=== PATIENT | female | born 1945 | race Caucasian/White ===

== ENCOUNTER 2016-07-17 19:16 | Inpatient (IN) | payer MEDICARE ==
[2016-07-17] MEDS ORDERED: methylPREDNISolone 125 MG* 2 ML VIAL IV ONE (19:31)
[2016-07-17] MEDS ORDERED: Albuterol/Ipratropium NEB.SOL* Albuterol 2.5 MG/Ipratropium 0.5 MG 3 ML INH ONE ×2 (19:31→20:59)
[2016-07-17] MEDS ORDERED: Furosemide IV* 10 MG/ML 10 ML VIAL (100 MG) IV ONE (19:33)
[2016-07-17 20:00] LABS: Hematocrit 46 % (35-47); Hemoglobin 14.9 g/dl (12.0-16.0); Mean Corpuscular HGB Conc 32 g/dl (31-36); Mean Corpuscular Hemoglobin 29 pg (27-31); Mean Corpuscular Volume 90 fL (80-97); Mean Platelet Volume 9 um3 (7.4-10.4); Red Blood Count 5.13 10^6/ul (4.0-5.4); Red Cell Distribution Width 17 % (10.5-15); White Blood Count 8.6 10^3/ul (3.5-10.8)
[2016-07-17] MEDS ORDERED: Ondansetron INJ* 2 MG/ML VIAL IV ONE (20:17)
[2016-07-17 20:18] LABS: Troponin I 0.03 ng/mL (<0.04)
[2016-07-17] MEDS ORDERED: Ondansetron INJ* 2 MG/ML VIAL ONE (20:18)
--- NOTE | 2016-07-17 20:23 | RAD ---
INDICATION: Shortness of breath. COMPARISON: May 07, 2016 TECHNIQUE: Dual energy PA and routine lateral views of the chest were obtained. REPORT: Elevated lung volumes and mild prominence of interstitial markings. No pulmonary consolidation, focal pulmonary lesion, pleural effusion, pneumothorax. In addition to the previous RIGHT atrial and RIGHT ventricular level pacemaker leads there is now an additional lead extending along the course of the coronary sinus. Grossly unchanged cardiomegaly. Unremarkable central pulmonary vasculature and mediastinal contours. Previous RIGHT subclavian catheter has been removed. IMPRESSION: Cardiomegaly. No evidence for pulmonary edema. Stigmata of probable chronic obstructive pulmonary disease.
[2016-07-17 20:27] LABS: BUN/Creatinine Ratio 16.9 (8-20); Calcium 9.3 mg/dL (8.6-10.3); EGFR African American 58.2 (>60); EGFR Non-African American 45.3 (>60); Globulin 3.7 g/dL (2-4); Potassium 4.6 mmol/L (3.5-5.0); Total Protein 7.7 g/dL (6.4-8.9)
--- NOTE | 2016-07-17 20:34 | ED ---
Andrew Driver Erika, scribed for Ashkan Peña MD on 07/17/16 at 1942 . Respiratory - HPI Summary HPI Summary: Patient is a 71-year-old female presenting to the ED with a CC of SOB. Daughter , who is a nurse at [employer] [facility] [employer], provides the history. She reports that pt had a cough and cold-like symptoms starting 07/15/2016. Last night, patient woke up twice during the night with difficulty breathing. Today at noon, patient developed sudden-onset SOB that has been gradually worsening since. She has been resting all day. Pt has used her albuterol inhaler. Pt is not on home O2. Daughter reports that symptoms have made patient anxious as well. Hx CHF - has recently had 2 ablations in [place], most recently on 06/02/2016. This was patient's last hospitalization. Pt's torsemide was recently decreased, and lisinopril was added. Hx COPD - pt is a former smoker. Hx OH with cardiac stents, Hx TIA. - History of Current Complaint Stated Complaint: DIFF BREATHING Time Seen by Provider: 07/17/16 19:26 Hx Obtained From: Family/Podiatrist Assistant - Daughter Hx From Patient Unobtainable Due To: Other - SOB Onset/Duration: Sudden Onset, Lasting Hours, Worse Since - Gradually worsening Timing: Constant Initial Severity: Moderate Current Severity: Moderate Character: Dyspnea at Rest Alleviating Factor(s): Nothing Associated Signs and Symptoms: SOB, URI - Allergy/Home Medications Allergies/Adverse Reactions: Allergies Allergy/AdvReac Type Severity Reaction Status Date / Time Niacin Allergy Severe Airway Verified 04/25/16 10:53 Obstruction Penicillins Allergy Severe Anaphylatic Verified 04/25/16 10:53 Shock Amiodarone AdvReac Severe See Comment Verified 05/06/16 09:14 Bupropion AdvReac Shakes Verified 05/06/16 09:15 Codeine AdvReac See Comment Verified 05/06/16 09:15 Home Medications: Home Medications Metoprolol Succinate XL TAB* [Toprol XL TAB*] 100 mg PO DAILY 07/17/16 [History Confirmed 07/17/16] Torsemide TAB* [Demadex 20 MG*] 50 mg PO EVERY OTHER DAY 07/17/16 [History Confirmed 07/17/16] Torsemide TAB* [Demadex*] 100 mg PO EVERY OTHER DAY 07/17/16 [History Confirmed 07/17/16] PMH/Surg Hx/FS Hx/Imm Hx Endocrine/Hematology History: Reports: Hx Thyroid Disease Denies: Hx Diabetes, Hx Anemia Cardiovascular History: Reports: Hx Auto Implanted Cardiovert Defib - d/t V fib , Hx Congestive Heart Failure, Hx Coronary Artery Disease, Hx Hypercholesterolemia, Hx Hypertension, Hx Pacemaker/ICD, Other Cardiovascular Problems/Disorders - Ventricular tachycardia, ventricular fibrillation, cardiomyopathy Denies: Hx Peripheral Vascular Disease Respiratory History: Reports: Hx Chronic Obstructive Pulmonary Disease (COPD) Denies: Hx Asthma GI History: Reports: Hx Gastroesophageal Reflux Disease Denies: Hx Jaundice, Hx Ulcer Musculoskeletal History: Reports: Hx Arthritis - OA, Hx Back Problems - Spinal stenosis, Hx Fibromyalgia, Other Musculoskeletal History - knee surgery Denies: Hx Osteoporosis Sensory History: Reports: Hx Contacts or Glasses Opthamlomology History: Reports: Hx Contacts or Glasses Neurological History: Reports: Hx Headaches Denies: Hx Seizures, Hx Transient Ischemic Attacks (TIA) - Cancer History Hx Chemotherapy: No Hx Radiation Therapy: No - Surgical History Surgery Procedure, Year, and Place: Tubal ligation 1970. Hysterectomy 1985. Cholecystectomy 1986. Right arthroscopic decompression of the shoulder 2001. Sphincterostomy 2005. Dual chamber ICD 1999, Generator changes in 08/2002, 2006, 08/2010 - Immunization History Date of Tetanus Vaccine: Unk Date of Influenza Vaccine: Fall 2014 Infectious Disease History: Denies: Hx Clostridium Difficile, Hx Hepatitis, Hx Human Immunodeficiency Virus (HIV), Hx of Known/Suspected MRSA, Hx Shingles, Hx Tuberculosis, Hx Known/ Suspected VRE, Hx Known/Suspected VRSA, History Other Infectious Disease - Family History Known Family History: Positive: Cardiac Disease Family History: No FHx of Breast CA - Social History Alcohol Use: None Substance Use Type: Reports: None Smoking Status (MU): Current Some Day Smoker Type: Cigarettes Amount Used/How Often: 1/2 pack q day Have You Smoked in the Last Year: Yes Review of Systems Positive: Shortness Of Breath, Cough Positive: Anxious All Other Systems Reviewed And Are Negative: Yes Physical Exam Triage Information Reviewed: Yes Vital Signs On Initial Exam: Initial Vital Signs Temp 98.7 F 07/17/16 19:20 Pulse 96 07/17/16 19:20 Resp 32 07/17/16 19:20 BP 111/88 07/17/16 19:20 Pulse Ox 94 07/17/16 19:20 Vital Signs Reviewed: Yes Appearance: Positive: Well-Appearing, No Pain Distress Skin: Positive: Warm Eyes: Positive: EPI ENT: Positive: Hearing grossly normal Neck: Positive: Supple Respiratory/Lung Sounds: Positive: Decreased Breath Sounds, Wheezes - diffuse bilat expiratory Cardiovascular: Positive: Tachycardia Abdomen Description: Positive: Nontender, Soft Bowel Sounds: Positive: Present Musculoskeletal: Positive: Strength/ROM Intact Neurological: Positive: Sensory/Motor Intact Psychiatric: Positive: Affect/Mood Appropriate Diagnostics - Vital Signs Vital Signs Temp Pulse Resp BP Pulse Ox 07/17/16 20:00 85 20 83 07/17/16 19:33 82 18 100 07/17/16 19:31 80 21 84 07/17/16 19:20 98.7 F 96 32 111/88 94 - Laboratory Lab Results: Lab Results 07/17/16 07/17/16 07/17/16 Range/Units 19:50 19:50 19:50 WBC 8.6 (3.5-10.8) 10^3/ul RBC 5.13 (4.0-5.4) 10^6/ul Hgb 14.9 (12.0-16.0) g/dl Hct 46 (35-47) % MCV 90 (80-97) fL MCH 29 (27-31) pg MCHC 32 (31-36) g/dl RDW 17 H (10.5-15) % Plt Count 245 (150-450) 10^3/ul MPV 9 (7.4-10.4) um3 Neut % (Auto) 81.6 (38-83) % Lymph % (Auto) 9.3 L (25-47) % [place] % (Auto) 7.0 (1-9) % Eos % (Auto) 1.1 (0-6) % Baso % (Auto) 1.0 (0-2) % Absolute Neuts (auto) 7.0 (1.5-7.7) 10^3/ul Absolute Lymphs (auto) 0.8 L (1.0-4.8) 10^3/ul Absolute Monos (auto) 0.6 (0-0.8) 10^3/ul Absolute Eos (auto) 0.1 (0-0.6) 10^3/ul Absolute Basos (auto) 0.1 (0-0.2) 10^3/ul Absolute Nucleated RBC 0.01 10^3/ul Nucleated RBC % 0.1 D-Dimer, Quantitative < 200 (Less Than 230) ng/mL Sodium 135 (133-145) mmol/L Potassium 4.6 (3.5-5.0) mmol/L Chloride 96 L (101-111) mmol/L Carbon Dioxide 26 (22-32) mmol/L Anion Gap 13 H (2-11) mmol/L BUN 20 (6-24) mg/dL Creatinine 1.18 H (0.51-0.95) mg/dL Est GFR ( Amer) 58.2 (>60) Est GFR (Non-Af Amer) 45.3 (>60) BUN/Creatinine Ratio 16.9 (8-20) Glucose 136 H (70-100) mg/dL Calcium 9.3 (8.6-10.3) mg/dL Total Bilirubin Pending AST 33 (13-39) U/L ALT 17 (7-52) U/L Alkaline Phosphatase 140 H (34-104) U/L Troponin I 0.03 (<0.04) ng/mL B-Natriuretic Peptide ( - 100) pg/mL Total Protein 7.7 (6.4-8.9) g/dL Albumin 4.0 (3.2-5.2) g/dL Globulin 3.7 (2-4) g/dL Albumin/Globulin Ratio 1.1 (1-3) 07/17/16 Range/Units 19:50 WBC (3.5-10.8) 10^3/ul RBC (4.0-5.4) 10^6/ul Hgb (12.0-16.0) g/dl Hct (35-47) % MCV (80-97) fL MCH (27-31) pg MCHC (31-36) g/dl RDW (10.5-15) % Plt Count (150-450) 10^3/ul MPV (7.4-10.4) um3 Neut % (Auto) (38-83) % Lymph % (Auto) (25-47) % [place] % (Auto) (1-9) % Eos % (Auto) (0-6) % Baso % (Auto) (0-2) % Absolute Neuts (auto) (1.5-7.7) 10^3/ul Absolute Lymphs (auto) (1.0-4.8) 10^3/ul Absolute Monos (auto) (0-0.8) 10^3/ul Absolute Eos (auto) (0-0.6) 10^3/ul Absolute Basos (auto) (0-0.2) 10^3/ul Absolute Nucleated RBC 10^3/ul Nucleated RBC % D-Dimer, Quantitative (Less Than 230) ng/mL Sodium (133-145) mmol/L Potassium (3.5-5.0) mmol/L Chloride (101-111) mmol/L Carbon Dioxide (22-32) mmol/L Anion Gap (2-11) mmol/L BUN (6-24) mg/dL Creatinine (0.51-0.95) mg/dL Est GFR ( Amer) (>60) Est GFR (Non-Af Amer) (>60) BUN/Creatinine Ratio (8-20) Glucose (70-100) mg/dL Calcium (8.6-10.3) mg/dL Total Bilirubin AST (13-39) U/L ALT (7-52) U/L Alkaline Phosphatase (34-104) U/L Troponin I (<0.04) ng/mL B-Natriuretic Peptide 309 H ( - 100) pg/mL Total Protein (6.4-8.9) g/dL Albumin (3.2-5.2) g/dL Globulin (2-4) g/dL Albumin/Globulin Ratio (1-3) Result Diagrams: 07/17/16 19:50 07/18/16 05:16 Lab Statement: Any lab studies that have been ordered have been reviewed, and results considered in the medical decision making process. - Radiology CXR Radiology Interpretation Completed By: Radiologist - IMPRESSION: Cardiomegaly. No evidence for pulmonary edema. Stigmata of probable chronic obstructive pulmonary disease. - EKG 20:30 EKG Interpretation: Ventricular paced rhythm at 80 bpm Re-Evaluation - Re-Evaluation First Eval Re-Evaluation Time: 21:40 Change: Improved Comment: Discussed admission. Pt and daughter agree with plan Disposition - Course Assessment/Plan: A 71 y/o F presents to the ED with a CC of difficulty breathing starting intermittently last night, and worsening today. Pt has a Hx CHF, COPD, OH, and TIA, and does not use home O2. EKG shows a ventricular paced rhythm. CXR shows cardiomegaly and stigmata for COPD. Blood work reveals a lactic acid of 4.5 and a BNP of 309. Pt was treated with 2 nebulizer treatments in the ED. Patient will be admitted to Dr. Downing for further work up and management. - Diagnoses Provider Diagnoses: COPD (chronic obstructive pulmonary disease) - Physician Notifications Discussed Care Of Patient With: Dr. Downing (hospitalist) at 21:35 - agrees to admit Instructed by Provider To: Admit As Inpatient Discharge - Discharge Plan Condition: Fair Disposition: ADMITTED TO [facility] The documentation as recorded by the Andrew mathew Erika accurately reflects the service I personally performed and the decisions made by , Ashkan Peña MD.
[2016-07-17 20:48] LABS: Total Bilirubin 0.5 mg/dL (0.2-1.0)
[2016-07-17 21:02] LABS: Magnesium 2.3 mg/dL (1.9-2.7)
[2016-07-17] MEDS ORDERED: Warfarin TAB(*) 5 MG PO SCH (22:00)
[2016-07-17] MEDS ORDERED: Acetaminophen TAB* 325 MG ONE (22:31)
[2016-07-17] MEDS: Acetaminophen TAB* 325 MG PO SCH (22:32)
[2016-07-17] MEDS: Warfarin TAB(*) 5 MG PO SCH (23:58)
--- NOTE | 2016-07-18 01:27 | HP ---
HOSPITAL MEDICINE HISTORY AND PHYSICAL: DATE OF ADMISSION: 07/17/16 PRIMARY CARE PHYSICIAN: Dr. Pilar Wolf ATTENDING PHYSICIAN: Dr. Benji Downing* (dictation provided by Christie Garces NP). CHIEF COMPLAINT: Shortness of breath and cough. HISTORY OF PRESENT ILLNESS: Ms. Guajardo is a 71-year-old female with a past medical history of severe ischemic cardiomyopathy with an ejection fraction reported to be somewhere near 10% to 15% as well as coronary artery disease with stent, AICD for atrial fibrillation, and hypotension, who presents today to the hospital with concern for cough and shortness of breath. Ms. Guajardo was admitted to our hospital and discharged on 05/13/16 after being treated for congestive heart failure. During that hospitalization, she had a cardiac catheterization without intervention and was felt to have coronary artery disease with plan for medical management. The patient states that since that hospitalization, she has gone on to be evaluated in [place] in May 2016 with an AV ablation and placement of a ventricular wire for AV pacing to help with her persistent uncontrolled atrial fibrillation. The patient states that since that time, she has been doing well. The patient was seen by Dr. Wolf a little less than a week ago. At that point, there was concern that perhaps the patient was dehydrated as her blood pressure was low and the recommendation was for her to decrease her torsemide from 100 mg p.o. daily to 100 mg p.o. every other day. It was also recommended that she stop an GILBERT inhibitor. The patient's daughter, who is a nurse, was concerned that this significant decrease in the torsemide would cause the patient become symptomatic from her CHF, so she opted instead to give the patient 100 mg alternating with 50 mg every other day. The GILBERT inhibitor was held. The patient was doing well until Sunday when around noon, she had a sudden onset of shortness of breath. She has had increased coughing with white sputum. She denies any fever. She states that where before she was able to lay flat to sleep she has not been able to do so over the weekend. She has some very mild lower extremity edema. She reports an episode of chills, but no fever. She reports back pain in her upper back with her daughter. She notes that back pain has previously been associated with CHF exacerbation. Her daughter notes that the patient often has unusual symptoms indicating her impending exacerbations. In the emergency room, Ms. Guajardo was afebrile. Vital signs were stable. Blood pressure running 111/88. She is satting well on 2 L nasal cannula. She has no leukocytosis. Her metabolic panel is essentially unremarkable except for a lactic acid, which is elevated at 4.5. Her BNP is 309. Her flu swab is negative. Chest x-ray shows concern for cardiomyopathy only, but is not being called a pulmonary edema per se. PAST MEDICAL HISTORY: 1. Congestive heart failure, systolic with estimated ejection fraction 10% to 15%. 2. Paroxysmal atrial fibrillation. 3. Sustained and nonsustained ventricular tachycardia. 4. History of AICD pacemaker. 5. History of C. difficile colitis in April 2016. 6. Coronary artery disease. 7. History of stent placement. 8. Hypothyroidism. 9. History of CVA. 10. Hypertension. 11. Anxiety. 12. Depression. 13. Hyperlipidemia. 14. GERD. 15. COPD. 16. Hypomagnesemia. 17. Vitamin B12 deficiency. 18. Vitamin D deficiency. MEDICATIONS: 1. Acetaminophen 1000 mg p.o. b.i.d. p.r.n. 2. Ketoconazole 1 application topically daily. 3. Lovastatin 40 mg p.o. b.i.d. 4. Torsemide 100 mg alternating with 50 mg every other day. 5. Aspirin 81 mg p.o. daily. 6. Levothyroxine 75 mcg p.o. daily. 7. Magnesium oxide 400 mg p.o. b.i.d. 8. Metoprolol succinate 100 mg p.o. daily. 9. Potassium chloride 20 mEq p.o. q.a.m. 10. Venlafaxine XR 75 mg p.o. at bedtime. 11. Warfarin 5 mg p.o. Sunday, Sunday, Sunday, Sunday, Sunday and 7.5 mg on Sunday and . ALLERGIES: NIACIN, PENICILLINS, AMIODARONE, BUPROPION, and CODEINE. FAMILY HISTORY: Reported her father had heart disease and no information was available on the mother. SOCIAL HISTORY: The patient continues to smoke about 3 cigarettes per day. There is no report of alcohol or drug use. She lives alone. Her daughter, Christie , is the healthcare proxy. REVIEW OF SYSTEMS: A 14-point review of systems was completed with Ms. Guajardo and all that not mentioned above were negative. PHYSICAL EXAMINATION GENERAL: Ms. Guajardo is sitting up in the bed. She is in no acute distress. She is calm and cooperative with my examination. VITAL SIGNS: Temperature 98.7, pulse rate 96, respiratory rate 32, O2 saturation 94% on 2 L nasal cannula, blood pressure 111/88. LUNGS: With coarse rhonchi bilaterally. No crackles noted. No accessory muscle use. HEART: S1, S2. No murmur, rub, or gallop and regular. ABDOMEN: Soft and nontender with bowel sounds positive x4. EXTREMITIES: No cyanosis or edema. SKIN: Intact. NEUROLOGIC: She is alert and oriented x3. She moves all extremities equally. There is no facial asymmetry or focal weakness. Extraocular movements are intact. DIAGNOSTIC STUDIES/LAB DATA: WBC 8.6, hemoglobin 14.9, hematocrit 46, platelet count 245. D-dimer less than 200. Sodium 135, potassium 4.6, chloride 96, serum bicarbonate 26, BUN 20, creatinine 1.18, glucose 136, lactic acid 4.5. Troponin 0.03. BNP 309. Flu swab is negative. Chest x-ray shows cardiomegaly, but no clear evidence of pulmonary edema per the Radiology report. ASSESSMENT: Ms. Guajardo is a 71-year-old female with a known history of ischemic cardiomyopathy with an ejection fraction of 10% to 15% as well as atrial fibrillation with AV paced rhythm and COPD, who presents to the emergency room with a sudden onset of shortness of breath. Our plans are for inpatient admission as I expect her length of stay to be greater than 2 days for the followin. [id number] systolic congestive heart failure exacerbation: The patient has a recent reduction in her torsemide dose. Her daughter and the patient note that she is very dependent on the torsemide. In the setting of orthopnea and lower extremity edema along with coarse breath sounds bilaterally. I suspect that she needs to resume her higher dose diuretic. Thus far in the emergency room, she has been given 40 mg of Lasix. I plan to add another 60 mg of Lasix intravenously now and then she will continue on her home torsemide dose tomorrow pending review and clinical course. Other than that, plan to monitor on the telemetry unit. She will have electrolytes rechecked in the a.m. She will have intake and output monitored q. shift and we will obtain weight daily. She will be on a low-salt diet. I think that this is less likely to be COPD exacerbation based on clinical exam. The patient has not improved with dual nebulizer treatments thus far in the ED. However, I think if she does not improve with diuresis consideration should be given to bronchitis/COPD exacerbation as contributing to her symptoms. I also think it is very much less likely to be pulmonary embolism, as although it was an acute onset, her D-dimer is less than 200. I finally note that this episode of CHF exacerbation is very similar to all previous episodes that she has experienced. 2. COPD. No evidence of exacerbation at this point. 3. Hypothyroidism. Continue levothyroxine. 4. Hypomagnesemia. Continue magnesium supplementation. 5. Cardiomyopathy with hypertension. Continue metoprolol. Continue to hold GILBERT inhibitor. 6. Atrial fibrillation. The patient is currently in AV paced rhythm. Plan to continue warfarin and to monitor INR, that is pending at this point. 7. DVT prophylaxis with warfarin. 8. Code status is full code. This was reviewed with the patient at the bedside. TIME SPENT: Approximately 60 minutes was spent on admission of this patient, more than half time spent with her at the bedside reviewing the events leading up to this hospitalization, performing the physical examination, and reviewing the plan of care. CHRISTIE GARCES NP CC: Dr. Pilar Wolf* [id number]/[facility] #: [id number] JESUS ALBERTO
[2016-07-18] MEDS: Nicotine PATCH 7 MG/24 HR* PATCH TRANSDERM SCH (03:19)
[2016-07-18 05:41] LABS: BUN/Creatinine Ratio 15.7 (8-20); Calcium 9.2 mg/dL (8.6-10.3); EGFR Non-African American 46.6 (>60); Potassium 4.4 mmol/L (3.5-5.0)
[2016-07-18] MEDS: Levothyroxine TAB* 75 MCG TAB PO SCH (06:12)
[2016-07-18] MEDS: Torsemide TAB* 20 MG PO SCH (07:38)
[2016-07-18] MEDS: Metoprolol Succinate XL TAB* 100 MG PO SCH (07:39)
[2016-07-18] MEDS: Magnesium Oxide TAB* 400 MG PO SCH ×2 (07:39→21:06)
[2016-07-18] MEDS: Aspirin EC Low Dose* 81 MG TAB.EC PO SCH (07:40)
[2016-07-18] MEDS: Potassium Chlor TAB* 20 MEQ TAB.ER PO SCH (07:40)
[2016-07-18] MEDS: Acetaminophen TAB* 325 MG PO SCH ×2 (07:41→21:06)
--- NOTE | 2016-07-18 08:35 | PN ---
Subjective - Subjective Reason for Note: Progress Note History: Carolina Guajardo told me the history of her current presentation and I also read the admitting H and P provided by Christie Garces NP. 07/15/2016 she had rhinorrhea, nausea, vomiting and diarrhea. At this time she developed increased shortness of breath. The diarrhea took a while to go away and she has had worsening dyspnea. She denies chest pain, edema. She has a history of ischemic cardiomyopathy with chonic systolic CHF. She has atrial fibrillation and a recent placement of a pacemaker/ICD. Since her admission, she has received parenteral furosemide and also bronchodilator therapy. This morning she remains dyspneic at rest. She denies chest pain. She has some cough. Active Problems: Active Problems Acute exacerbation of chronic obstructive pulmonary disease (COPD) (Acute) J44.1 Congestive heart failure with left ventricular systolic dysfunction (Acute) I50.20 Ventricular tachycardia (Acute) I47.2 Viral URI with cough (Acute) J06.9, B97.89 Anticoagulation adequate (Chronic) Z79.01 Anxiety and depression (Chronic) F41.9, F32.9 Atrial fibrillation (Chronic 06/14/15) I48.91 COPD (chronic obstructive pulmonary disease) (Chronic) J44.9 Coronary artery disease (Chronic) I25.10 GERD (gastroesophageal reflux disease) (Chronic) K21.9 History of CVA (cerebrovascular accident) (Chronic) Z86.73 History of myocardial infarction (Chronic) I25.2 Hypertension (Chronic) I10 Hypothyroidism (Chronic) E03.9 Ischemic cardiomyopathy (Chronic) I25.5 Obesity (Chronic) E66.9 Presence of combination internal cardiac defibrillator (ICD) and pacemaker ( Chronic) Z95.810 Current Medications: Current Medications Acetaminophen (Tylenol Tab*) 975 mg PO BID [facility] Last Admin: 07/18/16 07:41 Dose: 975 mg Aspirin (Aspirin Ec Low Dose*) 81 mg PO DAILY [facility] Last Admin: 07/18/16 07:40 Dose: 81 mg Furosemide (Lasix Iv*) 60 mg IV ONCE ONE Stop: 07/18/16 21:58 Levothyroxine Sodium (Synthroid Tab*) 75 mcg PO DAILY@0600 [facility] Last Admin: 07/18/16 06:12 Dose: 75 mcg Magnesium Oxide (Magox 400 Tab*) 400 mg PO BID [facility] Last Admin: 07/18/16 07:39 Dose: 400 mg Metoprolol Succinate (Toprol Xl Tab*) 100 mg PO DAILY [facility] Last Admin: 07/18/16 07:39 Dose: 100 mg Nicotine (Nicotine Patch 7 Mg/24 Hr*) 1 patch TRANSDERM DAILY [facility] Last Admin: 07/18/16 03:19 Dose: Not Given Pharmacy Profile Note (Nicotine Patch Removal Note*) 1 note FOLLOW UP 2100 [facility] Potassium Chloride (Klor Con Er Tab*) 20 meq PO QAM [facility] Last Admin: 07/18/16 07:40 Dose: 20 meq Torsemide (Demadex*) 100 mg PO DAILY [facility] Last Admin: 07/18/16 07:38 Dose: 100 mg Venlafaxine HCl (Effexor Xr Cap*) 75 mg PO BEDTIME [facility] Warfarin Sodium (Coumadin Tab(*)) 7.5 mg PO SuTh@1700 KEILY PRN Reason: Protocol Warfarin Sodium (Coumadin Tab(*)) 5 mg PO MoTuWeFrSa@1700 KEILY PRN Reason: Protocol Last Admin: 07/17/16 23:58 Dose: 5 mg - Review of Systems Constitutional Symptoms: No: Fever, Night Sweats Pulmonary: Positive: Cough, Sputum, Wheezing, Respiratory Distress, Shortness of Breath, COPD Negative: Hemoptysis Cardiology: Positive: Shortness of Breath, Palpitations - Telemetry 23 beat non- sustained VT Negative: Chest Pain, Swelling of Ankles Gastroenterology: Negative: Abdominal Pain, Nausea, Vomiting, Change in Bowel Habits - back to normal Home Medications: Home Medications Medication Instructions Recorded Confirmed Type Magnesium Oxide TAB* [MagOx 400 400 mg PO BID 06/14/15 07/17/16 History TAB*] Levothyroxine TAB* [Synthroid 75 75 mcg PO DAILY 11/03/15 07/17/16 History MCG TAB*] Venlafaxine EXT RELEASE CAP* 75 mg PO BEDTIME 11/03/15 07/17/16 History [Effexor Xr CAP*] Potassium Chlor TAB* [Potassium 20 meq PO QAM 11/12/15 07/17/16 History Chlor TAB 20 MEQ*] Ketoconazole (Topical) 1 applic TOPICAL DAILY PRN 02/07/16 07/17/16 History [Ketoconazole] Acetaminophen [Extra Strength 1,000 mg PO BID PRN 04/17/16 07/17/16 History Acetaminop] Aspirin EC Low Dose* [Ecotrin EC 81 mg PO DAILY 04/24/16 07/17/16 History Low Dose*] Lovastatin (NF) [Mevacor (NF)] 40 mg PO BID 05/02/16 07/17/16 History Warfarin TAB(*) [Coumadin TAB(*)] 5 mg PO [id number] 05/02/16 07/17/16 History Warfarin TAB(*) [Coumadin TAB(*)] 7.5 mg PO SUTH 05/02/16 07/17/16 History Metoprolol Succinate XL TAB* 100 mg PO DAILY 07/17/16 07/17/16 History [Toprol XL TAB*] Torsemide TAB* [Demadex 20 MG*] 50 mg PO EVERY OTHER DAY 07/17/16 07/17/16 History Torsemide TAB* [Demadex*] 100 mg PO EVERY OTHER DAY 07/17/16 07/17/16 History Allergies: Allergies Allergy/AdvReac Type Severity Reaction Status Date / Time Niacin Allergy Severe Airway Verified 04/25/16 10:53 Obstruction Penicillins Allergy Severe Anaphylatic Verified 04/25/16 10:53 Shock Amiodarone AdvReac Severe See Comment Verified 05/06/16 09:14 Bupropion AdvReac Shakes Verified 05/06/16 09:15 Codeine AdvReac See Comment Verified 05/06/16 09:15 Objective - Vital Signs Vital Signs: Vital Signs 07/17/16 07/17/16 07/17/16 22:31 22:52 22:56 Temperature Pulse Rate 80 80 82 Respiratory 20 26 Rate Blood Pressure 80/50 110/77 110/77 (mmHg) O2 Sat by Pulse 95 98 Oximetry 07/17/16 07/18/16 07/18/16 23:47 00:02 00:41 Temperature 98.7 F 98.7 F Pulse Rate 80 80 Respiratory 28 28 28 Rate Blood Pressure 85/52 85/52 (mmHg) O2 Sat by Pulse 95 85 Oximetry 07/18/16 07/18/16 07/18/16 01:11 03:15 03:49 Temperature 97.9 F Pulse Rate 79 80 Respiratory 16 24 Rate Blood Pressure 100/64 98/59 (mmHg) O2 Sat by Pulse 96 Oximetry 07/18/16 07:27 Temperature 98.2 F Pulse Rate 81 Respiratory 20 Rate Blood Pressure 107/73 (mmHg) O2 Sat by Pulse 98 Oximetry - Intake and Output Intake and Output: Intake & Output 07/15/16 07/16/16 07/17/16 07/18/16 11:59 11:59 11:59 11:59 Intake Total 620 Output Total 850 Balance -230 Weight 187 lb 12.8 oz Intake: Oral 620 Output: Urine 850 Other: # Bowel Movements 0 Intake and Output Start: 07/17/16 21: 59 Freq: 06,14,2200 Status: Active Document 07/18/16 06:00 [id number] (Rec: 07/18/16 06:04 [id number]) Document 07/18/16 06:23 [id number] (Rec: 07/18/16 06:23 [id number]) Intake and Output Start: 07/17/16 22: 37 Freq: DAILY@0600,1400,2200 Status: Active Document 07/18/16 06:00 [id number] (Rec: 07/18/16 06:04 [id number]) - Physical Exam General: Yes Cyanosis, No Anemia, No Jaundice, No Clubbing Skin: Normal: Rash Neck: No Cervical Adenopathy Lungs and Chest: Yes: Chest Expansion Full, Chest Expansion Symetrica, Percussion Note Resonant, Wheezes - widespread expiratory wheeze, Respiratory Distress, Use of Accessory Muscles. No: Vessicular Breath Sounds, Crackles Heart Rate and Rhythm: Regular Additional Cardiovascular: Yes: Normal Heart Sounds. No: Heart Murmur, Pedal Edema Abdominal Exam: Yes: Soft, Bowel Sounds Present. No: Distention, Abdominal Mass , Hepatomegaly, Abdominal Tenderness - Neuro Orientation: A/O x3 Speech: Normal Results - Results Lab Results: Laboratory Results - last 24 hr 07/18/16 07/18/16 05:16 05:16 Sodium 134 Potassium 4.4 Chloride 96 L Carbon Dioxide 29 Anion Gap 9 BUN 18 Creatinine 1.15 H Est GFR ( Amer) 60.0 Est GFR (Non-Af Amer) 46.6 BUN/Creatinine Ratio 15.7 Glucose 155 H Lactic Acid 3.4 H* Calcium 9.2 Radiology Results: Patient Name: CAROLINA GUAJARDO Medical Record#: [id number] Ordering Physician: Ashkan Peña MD Acct.#: [id number] : 1945 Age: 71 Sex: F Location: EMERGENCY DEPARTMENT Exam Date: 07/17/161930 ADM Status: PRE ER Order Information: CHEST PA & LAT 2 VWS Accession Number: [id number] CPT: 90310 INDICATION: Shortness of breath. COMPARISON: May 07, 2016 TECHNIQUE: Dual energy PA and routine lateral views of the chest were obtained. REPORT: Elevated lung volumes and mild prominence of interstitial markings. No pulmonary consolidation, focal pulmonary lesion, pleural effusion, pneumothorax. In addition to the previous RIGHT atrial and RIGHT ventricular level pacemaker leads there is now an additional lead extending along the course of the coronary sinus. Grossly unchanged cardiomegaly. Unremarkable central pulmonary vasculature and mediastinal contours. Previous RIGHT subclavian catheter has been removed. IMPRESSION: Cardiomegaly. No evidence for pulmonary edema. Stigmata of probable chronic obstructive pulmonary disease. <Electronically signed by Terrell Headley MD in OV> 07/17/162019 Dictated By: Terrell Headley MD Dictated Date/Time: 07/17/162019 Transcribed Date/Time: 07/17/162013 Copy to: CC:Pilar Wolf MD; Ashkan Peña MD Imaging - [facility] Imaging - [facility] [address] [place] [address] ph [phone]) ph ([phone]) ph ([phone]) 1 of 1 Assessment - Problem List Assessment: Patient Problems Acute exacerbation of chronic obstructive pulmonary disease (COPD) (Acute) Congestive heart failure with left ventricular systolic dysfunction (Acute) Ventricular tachycardia (Acute) Viral URI with cough (Acute) Anticoagulation adequate (Chronic) Anxiety and depression (Chronic) Atrial fibrillation (Chronic 06/14/15) COPD (chronic obstructive pulmonary disease) (Chronic) Coronary artery disease (Chronic) GERD (gastroesophageal reflux disease) (Chronic) History of CVA (cerebrovascular accident) (Chronic) History of myocardial infarction (Chronic) Hypertension (Chronic) Hypothyroidism (Chronic) Ischemic cardiomyopathy (Chronic) Obesity (Chronic) Presence of combination internal cardiac defibrillator (ICD) and pacemaker ( Chronic) Plan: Acute exacerbation of chronic obstructive pulmonary disease (COPD) (Acute) Viral URI with cough (Acute) She presents with a 3 day history of a viral syndrome associated with an exacerbation of COPD. She is receiving nebulizer treatment at present. Her chest X-ray is clear. I will check a CRP, pro- calcitonin. I will start her on oral prednisone and levofloxacin for an exacerbation of COPD. Congestive heart failure with left ventricular systolic dysfunction (Acute) Her BNP is no higher than usual. I will keep her dry with torsemide - this is bio-available orally and I don't think she requires parenteral loop diuretics Ventricular tachycardia (Acute) She has had a run of non-sustained VT. She has an ICD in situ. She is in a telemetry bed. Her electrolytes are normal this morning Anticoagulation adequate (Chronic) INR therapeutic Anxiety and depression (Chronic) stable Atrial fibrillation (Chronic 06/14/15) paced rhythm COPD (chronic obstructive pulmonary disease) (Chronic) see above Coronary artery disease (Chronic) no evidence of acute problems GERD (gastroesophageal reflux disease) (Chronic) ongoing History of CVA (cerebrovascular accident) (Chronic) inactive History of myocardial infarction (Chronic) Hypertension (Chronic) stable Hypothyroidism (Chronic) continue current Rx Ischemic cardiomyopathy (Chronic) see above Obesity (Chronic) Presence of combination internal cardiac defibrillator (ICD) and pacemaker ( Chronic) Phone call to Christie LOUIS
[2016-07-18] MEDS ORDERED: Spiriva Inhaler DEVICE* 1 EACH DEVICE ONE (09:00)
[2016-07-18] MEDS: predniSONE TAB* 20 MG PO SCH (09:16)
[2016-07-18] MEDS ORDERED: Levofloxacin 750 MG IVPREMIX(* 750 MG/150 ML BAG IVPB SCH (09:30)
[2016-07-18] MEDS: Tiotropium CAP.INH* CAP.INH/18 MCG (USE ORDER SET !) INH SCH (09:47)
[2016-07-18] MEDS: Warfarin TAB(*) 5 MG PO SCH (17:06)
[2016-07-18] MEDS: Venlafaxine EXT RELEASE CAP* 75 MG PO SCH (21:06)
[2016-07-18] MEDS: Nicotine Patch Removal NOTE FOLLOW UP SCH (21:10)
[2016-07-18] MEDS ORDERED: Furosemide IV* 10 MG/ML 10 ML VIAL (100 MG) IV ONE (21:57)
[2016-07-19] MEDS: Levothyroxine TAB* 75 MCG TAB PO SCH (05:58)
[2016-07-19 06:22] LABS: Hematocrit 45 % (35-47); Hemoglobin 14.5 g/dl (12.0-16.0); Mean Corpuscular HGB Conc 32 g/dl (31-36); Mean Corpuscular Hemoglobin 29 pg (27-31); Mean Corpuscular Volume 90 fL (80-97); Mean Platelet Volume 9 um3 (7.4-10.4); Red Blood Count 5.02 10^6/ul (4.0-5.4); Red Cell Distribution Width 17 % (10.5-15); White Blood Count 9.9 10^3/ul (3.5-10.8)
[2016-07-19 06:39] LABS: BUN/Creatinine Ratio 22.6 (8-20); Calcium 9.7 mg/dL (8.6-10.3); EGFR African American 50.7 (>60); EGFR Non-African American 39.4 (>60); Potassium 4.4 mmol/L (3.5-5.0)
[2016-07-19] MEDS: Tiotropium CAP.INH* CAP.INH/18 MCG (USE ORDER SET !) INH SCH (08:58)
[2016-07-19] MEDS ORDERED: Azithromycin TAB* 250 MG PO ONE (09:00)
[2016-07-19] MEDS: Acetaminophen TAB* 325 MG PO SCH ×2 (09:54→21:27)
[2016-07-19] MEDS: Aspirin EC Low Dose* 81 MG TAB.EC PO SCH (09:56)
[2016-07-19] MEDS: Magnesium Oxide TAB* 400 MG PO SCH ×2 (09:57→21:27)
[2016-07-19] MEDS: Metoprolol Succinate XL TAB* 100 MG PO SCH (09:58)
[2016-07-19] MEDS: Potassium Chlor TAB* 20 MEQ TAB.ER PO SCH (09:58)
[2016-07-19] MEDS: predniSONE TAB* 20 MG PO SCH (10:00)
[2016-07-19] MEDS: Nicotine PATCH 7 MG/24 HR* PATCH TRANSDERM SCH (10:03)
[2016-07-19] MEDS: Torsemide TAB* 20 MG PO SCH (10:36)
[2016-07-19] MEDS ORDERED: Ondansetron INJ* 2 MG/ML VIAL IV PRN (12:44)
[2016-07-19] MEDS ORDERED: Ondansetron TAB* 4 MG PO PRN (12:59)
[2016-07-19] MEDS: Warfarin TAB(*) 5 MG PO SCH (19:20)
[2016-07-19] MEDS: Nicotine Patch Removal NOTE FOLLOW UP SCH (21:24)
[2016-07-19] MEDS: Venlafaxine EXT RELEASE CAP* 75 MG PO SCH (21:27)
[2016-07-20 05:15] LABS: Hematocrit 41 % (35-47); Hemoglobin 13.6 g/dl (12.0-16.0); Mean Corpuscular HGB Conc 33 g/dl (31-36); Mean Corpuscular Hemoglobin 29 pg (27-31); Mean Corpuscular Volume 89 fL (80-97); Mean Platelet Volume 8 um3 (7.4-10.4); Red Blood Count 4.64 10^6/ul (4.0-5.4); Red Cell Distribution Width 17 % (10.5-15); White Blood Count 7.7 10^3/ul (3.5-10.8)
[2016-07-20 05:37] LABS: BUN/Creatinine Ratio 30.5 (8-20); C Reactive Protein 2.58 mg/L (< 5.00); Calcium 9.4 mg/dL (8.6-10.3); EGFR African American 66.6 (>60); EGFR Non-African American 51.8 (>60); Magnesium 2.4 mg/dL (1.9-2.7); Potassium 4.5 mmol/L (3.5-5.0)
[2016-07-20] MEDS: Levothyroxine TAB* 75 MCG TAB PO SCH (05:38)
[2016-07-20 05:40] LABS: Troponin I 0.04 ng/mL (<0.04)
[2016-07-20] MEDS: Tiotropium CAP.INH* CAP.INH/18 MCG (USE ORDER SET !) INH SCH (08:28)
[2016-07-20] MEDS: Acetaminophen TAB* 325 MG PO SCH ×2 (10:01→20:10)
[2016-07-20] MEDS: Aspirin EC Low Dose* 81 MG TAB.EC PO SCH (10:01)
[2016-07-20] MEDS: Azithromycin TAB* 250 MG PO SCH (10:02)
[2016-07-20] MEDS: Magnesium Oxide TAB* 400 MG PO SCH ×2 (10:04→20:13)
[2016-07-20] MEDS: Metoprolol Succinate XL TAB* 100 MG PO SCH (10:04)
[2016-07-20] MEDS: Nicotine PATCH 7 MG/24 HR* PATCH TRANSDERM SCH (10:05)
[2016-07-20] MEDS: predniSONE TAB* 20 MG PO SCH (10:06)
[2016-07-20] MEDS: Torsemide TAB* 20 MG PO SCH (10:07)
[2016-07-20] MEDS: Potassium Chlor TAB* 20 MEQ TAB.ER PO SCH (10:07)
--- NOTE | 2016-07-20 16:57 | ECHO ---
Patient: KAVON MUNOZ [facility] Rec#: [id number] : 1945 Date: 07/20/2016 Age: 71y Height: 160.02 cm / 63.0 in Weight: 85.28 kg / 188.0 lbs Sex: F BSA: 1.88 Room#: [facility] Admit Date#: 07/20/2016 Type: Inpatient Referring: Pilar Wolf MD Reading: Luis Alberto Reyna MD Finished Cloth Checker: Jack Chaves RDCS Transthoracic Echocardiogram Indication: CHF BP: 122/52 HR: 82 Rhythm: A-Fib Findings History: Severe, ischemic, cardiomyoathy, CAD, PCI, ACID, hypotension,CHF, PAF,CVA, COPD, HLD Technical Comments: The study quality is fair. Completed 1640 The study is technically limited due to patient body habitus. Left Ventricle: The left ventricular chamber size is normal.There is borderline concentric LV hypertrophy. Severe global hypokinesis of the left ventricle is observed.The inferior / posterolateral wall is worse than the anterior/anterolateral wall. There is severely decreased left ventricular systolic function.Overall LVEF is estimated at 25-30 %. The assessment of diastolic function is non-diagnostic. Left Atrium: The left atrium is severely dilated. Right Ventricle: The right ventricular cavity size is normal. Right Atrium: The right atrium is mild to moderately dilated. Aortic Valve: The aortic valve is trileaflet. There is no evidence of aortic regurgitation. There is no evidence of aortic stenosis. Mitral Valve: There is moderate to severe mitral regurgitation. The mitral regurgitant jet is eccentric.It is posterolaterally directed. Tricuspid Valve: There is moderate to severe tricuspid regurgitation. The tricuspid regurgitant jet is eccentric.It is directed torward the interatrial septum. The right ventricular systolic pressure is estimated at 39 mmHg. There is evidence of mild pulmonary hypertension. Pulmonic Valve: The pulmonic valve structure is not well visualized. Pericardium: There is no pericardial effusion. Aorta: There is no dilatation of the ascending aorta. The aortic arch is not well visualized. There is no dilation of the aortic root. Pulmonary Artery: The main pulmonary artery is not well visualized. Venous: The inferior vena cava appears normal in size. There is less than 50% respiratory change in the inferior vena cava dimension. Conclusions The left ventricular chamber size is normal.There is borderline concentric LV hypertrophy. Severe global hypokinesis of the left ventricle with subtle segmental wall motion differences as noted above. There is severely decreased left ventricular systolic function. The estimated ejection fraction is 25-30%. The left atrium is severely dilated. The right atrium is mild to moderately dilated. There is moderate to severe eccentric mitral regurgitation. There is moderate to severe eccentric tricuspid regurgitation. COmpared to report of study from 02/09/2016 there is minimal change. Measurements Name Value Normal Range RVIDd (AP) 2D 2.5 cm (0.9 - 2.6) RVDdMajor (2D) 2.2 cm (2.2 - 4.4) RAd ISD 4CH 6.44 cm (3.4 - 4.9) IVSd (2D) 1.1 cm (0.6 - 1) LVPWd (2D) 0.8 cm (0.6 - 1) LVIDd (2D) 5.7 cm (3.6 - 5.4) LVIDs (2D) 4.6 cm - LV FS (2D) 18 % (25 - 45) Aortic Annulus 2.3 cm (1.4 - 2.6) Ao root diameter (2D) 3 cm (2.1 - 3.5) Ascending Ao 2.6 cm (2.1 - 3.4) LA dimension (AP) 2D 4.5 cm (2.3 - 3.8) LAd ISD 4CH 6.9 cm (2.9 - 5.3) LA ISD 4CH W 4.1 cm (2.5 - 4.5) Name Value Normal Range LA ESV SP 4CH (A/L) 85 ml - LA ESV SP 2CH (A/L) 140 ml - LA ESV BP (A/L) 111 ml - LA ESV BP (A/L) index 58.71 ml/m2 - LA ESV SP 4CH (MOD) 74 ml - LA ESV SP 2CH (MOD) 129 ml - Name Value Normal Range MV E-wave Vmax 0.76 m/sec - MV deceleration time 137 msec - MV A-wave Vmax 0.81 m/sec - MV E:A ratio 0.93 ratio - LV septal e' Vmax 0.06 m/sec - LV lateral e' Vmax 0.06 m/sec - LV E:e' septal ratio 12.6 ratio - LV E:e' lateral ratio 12.6 ratio - Name Value Normal Range LVOT diameter 2.1 cm - LVOT Vmax 0.6 m/sec - LVOT VTI 9.51 cm - Name Value Normal Range TR Vmax 3 m/sec - TR peak gradient 36 mmHg - RAP 3 mmHg - RVSP 39 mmHg - IVC diameter 1.95 cm - Name Value Normal Range PV Vmax 0.66 m/sec - PV peak gradient 1.76 mmHg -
[2016-07-20] MEDS ORDERED: Warfarin TAB(*) 7.5 MG PO SCH (17:00)
[2016-07-20] MEDS: Venlafaxine EXT RELEASE CAP* 75 MG PO SCH (20:11)
[2016-07-20] MEDS: Nicotine Patch Removal NOTE FOLLOW UP SCH (20:13)
[2016-07-21] MEDS: Levothyroxine TAB* 75 MCG TAB PO SCH (05:38)
[2016-07-21 06:03] LABS: BUN/Creatinine Ratio 34.2 (8-20); Calcium 9.2 mg/dL (8.6-10.3); EGFR African American 62.5 (>60); EGFR Non-African American 48.6 (>60); Magnesium 2.3 mg/dL (1.9-2.7); Potassium 4.4 mmol/L (3.5-5.0)
[2016-07-21 06:11] LABS: Troponin I 0.05 ng/mL (<0.04)
[2016-07-21] MEDS: Tiotropium CAP.INH* CAP.INH/18 MCG (USE ORDER SET !) INH SCH (08:52)
[2016-07-21 09:19] VITALS: BP 136/92
[2016-07-21] MEDS: Metoprolol Succinate XL TAB* 100 MG PO SCH (09:23)
[2016-07-21] MEDS: Acetaminophen TAB* 325 MG PO SCH (09:23)
[2016-07-21] MEDS: Nicotine PATCH 7 MG/24 HR* PATCH TRANSDERM SCH (09:24)
[2016-07-21] MEDS: predniSONE TAB* 20 MG PO SCH (09:25)
[2016-07-21] MEDS: Potassium Chlor TAB* 20 MEQ TAB.ER PO SCH (09:25)
[2016-07-21] MEDS: Magnesium Oxide TAB* 400 MG PO SCH (09:25)
[2016-07-21] MEDS: Azithromycin TAB* 250 MG PO SCH (09:28)
[2016-07-21] MEDS: Aspirin EC Low Dose* 81 MG TAB.EC PO SCH (09:28)
--- NOTE | 2016-07-22 00:33 | DS ---
DISCHARGE SUMMARY: DATE OF ADMISSION: 07/17/16 DATE OF DISCHARGE: 07/21/16 DISCHARGE DIAGNOSES: 1. Bronchitis with bronchospasm. 2. Chronic congestive heart failure. 3. History of atrial fibrillation. 4. History of coronary artery disease. 5. History of hypothyroidism. 6. Hyperlipidemia. 7. Nausea and vomiting. 8. History of weight loss ? cardiac related. 9. Nonsustained ventricular tachycardia. HISTORY: Carolina Guajardo is a 71-year-old woman admitted with shortness of breath. Please see the dictated admission note for the details of the present illness, past medical history, family history, social and personal history, review of systems, and physical examination. DIAGNOSTIC STUDIES/LAB DATA: WBC 8.6, H and H 14.9/46, MCV 90, PLT 245K. CBC on July 20, WBC 7.7, H and H 13.6/41, MCV 89, PLT 192K. INRs on July 17 , 2.11; on July 20, 2.99; on July 21, 2.93. Chemistries on admission, sodium 135, potassium 4.6, chloride 96, CO2 26, BUN and creatinine 20/1.18, glucose 136. Rest of the comprehensive metabolic panel was normal except for alkaline phosphatase mildly elevated at 140. Troponin was normal at 0.03, repeat troponins were 0.04 on July 20, and 0.05 on July 21. C-reactive protein on July 19 was 4.31, on July 20 was 2.58. Procalcitonin was normal at 0.1. BNPs were 309 on July 17, 495 on July 20, and on July 21 was 698. Magnesium was normal at 2.3, lactic acid was 4.5 on July 17, 3.4 on July 18. Flu swab was negative. D-dimer less than 200. Chemistries on July 21 prior to discharge: sodium 136, potassium 4.4, chloride 95, CO2 37, BUN and creatinine 38/1.11, glucose 102, calcium 9.2, magnesium 2.3, BNP 698. Imaging: Chest x-ray on July 17 showed cardiomegaly with no evidence of pulmonary edema. There was stigmata of chronic obstructive pulmonary disease. EKG on July 17 showed paced rhythm. 2D echo on July 20 showed improved EF with 25% to 30% but with areas of severe hypocontractility of the left ventricule . HOSPITAL COURSE: The patient was initially admitted and felt to have acute on chronic systolic congestive heart failure. She was given 40 mg of furosemide in the emergency room. Another 60 mg of furosemide was given after admission. She received DuoNeb in the ED. She was seen by Dr. Ham on July 18 at which time she was felt to have an acute exacerbation of COPD, viral URI with cough. He reported a 3-day history of viral syndrome associated with an exacerbation of COPD. She was placed on oral prednisone and Levaquin, subsequently switched to azithromycin. She did have a run of nonsustained V- tach. No further treatment was done with regards to that as she has an ICD in. On July 19, she said that she felt better. She did report a history on Sunday, July 15, of cold chills, felt she was getting sick with cough and runny nose. She felt that she had had a cold. It was felt that she likely had a viral respiratory infection not heart failure and her medications were adjusted accordingly. By July 20, she was improved but continues to have some wheezing and coughing. She was on prednisone and azithromycin. She had vomited, once felt that was because she had taken medications on an empty stomach, although it was noted that she has lost 45 pounds since a year ago and 25 pounds since last October. It was felt that she should continue on her diuretic torsemide ever other day as previously been planned. Echo was ordered and did show improvement in her LV function since she had biventricular pacer and ablation performed. It was felt that her anorexia, weight loss could have related to her worsening cardiac function. By July 21, she was still wheezing but she felt much better, ready to go home. Her weight had gone down since yesterday a couple of pounds. She did receive torsemide yesterday, had been held the day before. Her BNP was up but her weight was down. Her INR was therapeutic. It was felt that she was improving with the prednisone and that she could go home. At the time of discharge, she was told to weigh herself daily and call if her weight changes 4 pounds either up or down. Her diet is usual. Her activity is as tolerated. DISCHARGE MEDICATIONS: She is to be on the following medications: 1. Warfarin 5 mg 1 pill 5 days a week and 1-1/2 pills Sundays and . 2. Torsemide 100 mg every other day. 3. Metoprolol tartrate 100 mg one-half pill twice a day (there was some confusion and I did speak to both the patient and her daughter about that. She had previously been on metoprolol tartrate and it was changed to metoprolol succinate in [place] after her biventricular pacer and ablation was done in May. I wondered if she was taking both of them as the cause for her hypotension when I saw her in the office on July 11 but she and her daughter did not think she was taking both. At this point, I am going to place her on metoprolol tartrate 100 mg one-half pill twice a day and we will see how she does with that. That is what she has at home). 4. Magnesium oxide 400 mg twice a day. 5. Venlafaxine 75 mg once a day. 6. Levothyroxine 75 mcg once a day. 7. Potassium chloride 20 mEq once a day. 8. B12 1000 mcg once a day. 9. Ondansetron 4 mg every 4 hours as needed for nausea. 10. Aspirin 81 mg once a day. 11. Spironolactone 25 mg one-half pill daily. 12. Acetaminophen 500 mg 2 twice a day as needed for arthritis. 13. Albuterol 2 puffs every 4 hours as needed for cough or wheezing. 14. Prednisone 10 mg three a day for 2 days, two a day for 2 days, and one a day for 2 days. I do not think she needs any more azithromycin as it does seem like she had a bacterial infection, she has already had 3 days of this. I will follow up with her in 3 to 4 days. cc: Dr. Elder* [id number]/CPS #: [id number] MTDD
[2016-07-22] MEDS ORDERED: Torsemide TAB* 20 MG PO SCH (09:00)
== END 2016-07-21 12:30 | disposition home or self-care (01) | DRG 191 ==
LOC: ED 19:16 → MEDTELE 22:14
PROVIDERS: ADMIT Hospitalist; ATTEND Internal Medicine Geriatric Medicine
DX: J44.0 Chronic obstructive pulmonary disease with (acute) lower respiratory infection (principal); I50.22 Chronic systolic (congestive) heart failure; I47.2 Ventricular tachycardia; I48.0 Paroxysmal atrial fibrillation; I11.0 Hypertensive heart disease with heart failure; E83.42 Hypomagnesemia; J20.9 Acute bronchitis, unspecified; J44.1 Chronic obstructive pulmonary disease with (acute) exacerbation; I25.5 Ischemic cardiomyopathy; I25.10 Atherosclerotic heart disease of native coronary artery without angina pectoris; E03.9 Hypothyroidism, unspecified; F41.9 Anxiety disorder, unspecified; F32.9 Major depressive disorder, single episode, unspecified; E78.5 Hyperlipidemia, unspecified; K21.9 Gastro-esophageal reflux disease without esophagitis; F17.210 Nicotine dependence, cigarettes, uncomplicated; E78.00 Pure hypercholesterolemia, unspecified; M19.90 Unspecified osteoarthritis, unspecified site; M48.00 Spinal stenosis, site unspecified; M79.7 Fibromyalgia; R63.0 Anorexia; R63.4 Abnormal weight loss; E66.9 Obesity, unspecified; E53.8 Deficiency of other specified B group vitamins; R11.2 Nausea with vomiting, unspecified; Z79.01 Long term (current) use of anticoagulants; Z79.82 Long term (current) use of aspirin; Z95.5 Presence of coronary angioplasty implant and graft; Z95.810 Presence of automatic (implantable) cardiac defibrillator; Z86.73 Personal history of transient ischemic attack (TIA), and cerebral infarction without residual deficits; Z88.0 Allergy status to penicillin; Z88.5 Allergy status to narcotic agent; Z88.8 Allergy status to other drugs, medicaments and biological substances; Z82.49 Family history of ischemic heart disease and other diseases of the circulatory system; I25.2 Old myocardial infarction; Z90.49 Acquired absence of other specified parts of digestive tract; Z90.710 Acquired absence of both cervix and uterus; Z98.51 Tubal ligation status; Z68.33 Body mass index [BMI] 33.0-33.9, adult
CPT/HCPCS: 36415; 71020; 80048; 80053; 83605; 83735; 83880; 84145; 84484; 85025; 85027; 85379; 85610; 86140; 87502; 93005; 93306; 94640; 94760; A9270-GY; J1940; J2405; J2930; J7512

== ENCOUNTER 2016-11-06 09:33 | Day surgery (SDC) | payer MEDICARE ==
[~2016-11-06 09:33] MED LIST: Acetaminophen TAB* 325 MG PO PRN; Buffered Lidocaine 0.9% SYRIN* 5 ML/SYR SYRINGE INTRADERM ONE
[2016-11-06] MEDS ORDERED: fentaNYL* 50 MCG/ML 2 ML VIAL (100 MCG VIAL) ONE (10:35)
[2016-11-06] MEDS ORDERED: Midazolam* 1 MG/ML 2 ML VIAL (2 MG) ONE ×2 (10:35→11:03)
[2016-11-06 11:53] VITALS: BP 108/65
[2016-11-06] MEDS ORDERED: Lidocaine 1% MPF* 2 ML VIAL ONE (14:52)
[2016-11-06] MEDS ORDERED: Neomycin/Polymy/Dex OPHTH.OIN* 3.5 GM ONE (14:52)
[2016-11-06] MEDS ORDERED: Tetracaine 0.5% OPTH.SOL 4 ML* 1 DROP BTL ONE (14:52)
[2016-11-06] MEDS ORDERED: Cyclopentolate 1% OPTH.SOL* 2 ML BTL ONE (14:52)
[2016-11-06] MEDS ORDERED: Phenylephrine 2.5% OPTH.SOL* 2 ML BTL ONE (14:52)
[2016-11-06] MEDS ORDERED: Povidone Iodine 5% OPTH* 30 ML BTL ONE (14:52)
[2016-11-06] MEDS ORDERED: Buffered Lidocaine 0.9% SYRIN* 5 ML/SYR SYRINGE ONE (14:52)
[2016-11-06] MEDS ORDERED: Flurbiprofen 0.03% OPTH.SOL* 2.5 ML BTL ONE (14:52)
[2016-11-06] MEDS ORDERED: acetaZOLAMIDE TAB* 250 MG ONE (14:52)
[2016-11-06] MEDS ORDERED: Tropicamide 1% OPTH.SOL* BTL ONE (14:52)
--- NOTE | 2016-11-07 00:14 | OP ---
DATE OF OPERATION: 11/06/16 - [facility] DATE OF : 47 SURGEON: Cem Verde MD ANESTHESIOLOGIST: Estephania Ortega MD ANESTHESIA: Monitored anesthesia care. PRE-OP DIAGNOSIS: Cataract of the right eye. POST-OP DIAGNOSIS: Cataract of the right eye. OPERATIVE PROCEDURE: Cataract surgery of the right eye. IMPLANTS: SN60WF 18.0 diopter lens to the right eye. COMPLICATIONS: None. DESCRIPTION OF PROCEDURE: The patient was given phenylephrine 2.5% and cyclopentolate 1% eye drops to the operative eye in the preoperative area. The patient was brought to the operating room, where a time-out was taken to identify the correct patient, site, and side of surgery. The patient's right eye was prepped and draped in the usual sterile fashion with 5% Betadine. A second time- out was taken to verify the correct patient, site and side of surgery, and correct lens selection. A lid speculum was placed to the right eye. A 1-mm paracentesis blade was used to make a clear corneal incision in the superotemporal position. Preservative-free 1% lidocaine was injected into the anterior chamber. DisCoVisc was injected into the anterior chamber. A 2.75 -mm keratome blade was used to make a triplanar incision at the inferotemporal position. A cystotome initiated a capsulorrhexis, which was completed with Utrata forceps in a continuous and curvilinear manner. Hydrodissection of the lens was performed with BSS on the cannula. The lens could be spun in the capsular bag. The phacoemulsification handpiece was used with the divide-and- conquer technique to remove the nucleus in its entirety with 39.84 CDE. The I/ A handpiece then removed the residual cortical lens material. DisCoVisc was injected to inflate the capsular bag. The planned SN60WF 18.0 diopter lens was injected into the capsular bag. The residual DisCoVisc was removed from the eye with the I/A handpiece. The corneal incisions were hydrated and no leaks occurred at physiologic pressure around 20 mmHg per palpation. The lid speculum was removed and drapes removed. Maxitrol ointment was placed on the surface of the operative eye. An adhesive patch and shield was placed on the operative eye. The patient was taken to the postoperative area in stable condition. [id number]/[facility] #: [id number] MTDBry
== END 2016-11-06 11:52 | disposition home or self-care (01) ==
LOC: OREAST 09:33
PROVIDERS: ATTEND Student in an Organized Health Care Education/Training Program
DX: H25.11 Age-related nuclear cataract, right eye (principal); I25.5 Ischemic cardiomyopathy; I48.0 Paroxysmal atrial fibrillation; I10 Essential (primary) hypertension; F17.210 Nicotine dependence, cigarettes, uncomplicated; Z79.01 Long term (current) use of anticoagulants; Z95.810 Presence of automatic (implantable) cardiac defibrillator
CPT/HCPCS: A9270-GY; J2250; J3010; V2632

== ENCOUNTER 2016-11-13 06:35 | Day surgery (SDC) | payer MEDICARE ==
[2016-11-13] MEDS ORDERED: Midazolam* 1 MG/ML 2 ML VIAL (2 MG) ONE ×2 (07:34→07:45)
[2016-11-13 08:33] VITALS: BP 101/73
--- NOTE | 2016-11-13 10:10 | OP ---
DATE OF OPERATION: 11/13/16 - [facility] DATE OF : 47 SURGEON: Cem Verde MD ANESTHESIOLOGIST: Saw Khan MD ANESTHESIA: Monitored anesthesia care. PRE-OP DIAGNOSIS: Cataract, left eye. POST-OP DIAGNOSIS: Cataract, left eye. OPERATIVE PROCEDURE: Cataract extraction of left eye. IMPLANTS: SN60WF 19.0 diopter lens to the left eye. COMPLICATIONS: None. DESCRIPTION OF PROCEDURE: The patient was given phenylephrine 2.5% and cyclopentolate 1% eye drops to the operative eye in the preoperative area. The patient was brought to the operating room, where a time-out was taken to identify the correct patient, site, and side of surgery. The patient's left eye was prepped and draped in the usual sterile fashion with 5% Betadine. A second time-out was taken to verify the correct patient, site, and side of surgery, and correct lens selection. A lid speculum was placed to the left eye. A 1-mm paracentesis blade was used to make a clear corneal incision in the inferotemporal position. Preservative-free 1% lidocaine was injected into the anterior chamber. DisCoVisc was then injected into the anterior chamber. A 2.75-mm keratome blade was used to make a triplanar incision in the superotemporal position. A cystotome was used to initiate a capsulorrhexis, which was completed with Utrata forceps in a continuous and curvilinear manner. Hydrodissection of the lens was performed with BSS on a cannula. The lens could be spun in the capsular bag. The phacoemulsification handpiece was used with a [id number] technique to remove the nucleus in its entirety with 40.24 CDE. The I/A handpiece then removed the residual cortical lens material. DisCoVisc was injected to inflate the capsular bag. The planned SN60WF 19.0 diopter lens was injected into the capsular bag. The residual DisCoVisc was removed from the eye with the I/A handpiece. The corneal incisions were hydrated and no leaks occurred at physiologic pressure around 20 mmHg per palpation. The lid speculum was removed and drapes removed. Maxitrol ointment was placed on the surface of the operative eye. An adhesive patch and shield was placed on the operative eye. The patient was taken to the postoperative area in stable condition. [id number]/[facility] #: [id number] MTDBry
[2016-11-13] MEDS ORDERED: Tetracaine 0.5% OPTH.SOL 4 ML* 1 DROP BTL ONE (14:18)
[2016-11-13] MEDS ORDERED: Lidocaine 1% MPF* 2 ML VIAL ONE (14:18)
[2016-11-13] MEDS ORDERED: Povidone Iodine 5% OPTH* 30 ML BTL ONE (14:18)
[2016-11-13] MEDS ORDERED: Flurbiprofen 0.03% OPTH.SOL* 2.5 ML BTL ONE (14:18)
[2016-11-13] MEDS ORDERED: Tropicamide 1% OPTH.SOL* BTL ONE (14:18)
[2016-11-13] MEDS ORDERED: Phenylephrine 2.5% OPTH.SOL* 2 ML BTL ONE (14:18)
[2016-11-13] MEDS ORDERED: Neomycin/Polymy/Dex OPHTH.OIN* 3.5 GM ONE (14:18)
[2016-11-13] MEDS ORDERED: acetaZOLAMIDE TAB* 250 MG ONE (14:18)
[2016-11-13] MEDS ORDERED: Cyclopentolate 1% OPTH.SOL* 2 ML BTL ONE (14:18)
[2016-11-13] MEDS ORDERED: Buffered Lidocaine 0.9% SYRIN* 5 ML/SYR SYRINGE ONE (14:19)
== END 2016-11-13 08:43 | disposition home or self-care (01) ==
LOC: OREAST 06:35
PROVIDERS: ATTEND Student in an Organized Health Care Education/Training Program
DX: H25.12 Age-related nuclear cataract, left eye (principal); F17.210 Nicotine dependence, cigarettes, uncomplicated; Z79.01 Long term (current) use of anticoagulants; Z79.82 Long term (current) use of aspirin; Z88.0 Allergy status to penicillin; Z88.8 Allergy status to other drugs, medicaments and biological substances; Z88.5 Allergy status to narcotic agent; J44.9 Chronic obstructive pulmonary disease, unspecified; E03.9 Hypothyroidism, unspecified; F32.9 Major depressive disorder, single episode, unspecified; I48.91 Unspecified atrial fibrillation; E78.00 Pure hypercholesterolemia, unspecified; I25.10 Atherosclerotic heart disease of native coronary artery without angina pectoris; Z95.5 Presence of coronary angioplasty implant and graft; I25.2 Old myocardial infarction; Z86.73 Personal history of transient ischemic attack (TIA), and cerebral infarction without residual deficits; Z79.891 Long term (current) use of opiate analgesic; E66.9 Obesity, unspecified; Z95.810 Presence of automatic (implantable) cardiac defibrillator; I25.5 Ischemic cardiomyopathy; I11.0 Hypertensive heart disease with heart failure; I50.9 Heart failure, unspecified; E78.5 Hyperlipidemia, unspecified; Z68.34 Body mass index [BMI] 34.0-34.9, adult
CPT/HCPCS: A9270-GY; J2250; V2632

== ENCOUNTER 2018-03-21 17:22 | Observation (INO) | payer MEDICARE ==
--- NOTE | 2018-03-21 19:48 | ED ---
Lower Extremity - HPI Summary HPI Summary: A 72 y/o F referred from Dr. Wolf, PCP, for poor pedal pulses, blue discolored feet and to r/o arterial compromise/occlusion, presents to ED with c/ o bilat feet pain onset two day ago. Pain described as sharp and shooting on posterior side of LE. She was seen yesterday by Dr. Wolf's SHIFT FOREMAN for her L foot because it was red, swollen and painful, dx: cellulitis. Pt was having difficulty ambulating due to the pain. Pt was given Doxycycline, she took the first dose and vomited. When she took the second dose, she vomited 6 hours later. Associated sx: subjective fever, pallor. This AM, the pt's R foot was red and painful. She also has healing lesions on her R foot from an allergic reaction to tape. PMHx: arthritis. She takes Coumadin. Pt saw her PCP two weeks ago for bilat LE feet pain, dx: plantar fasciitis. Pt has significant vascular disease, stroke, pacer/defibrillator, EF 10%. Vitals at bedside: HR: 81 bpm; BP: 116/70. Home Medications Medication Instructions Recorded Confirmed Type Magnesium Oxide TAB* [MagOx 400 400 mg PO BID 06/14/15 11/06/16 History TAB*] Levothyroxine TAB* [Synthroid 75 75 mcg PO DAILY 11/03/15 11/06/16 History MCG TAB*] Venlafaxine EXT RELEASE CAP* 75 mg PO BEDTIME 11/03/15 11/06/16 History [Effexor Xr CAP*] Potassium Chlor TAB* [Potassium 20 meq PO QAM 11/12/15 11/06/16 History Chlor TAB 20 MEQ*] Acetaminophen [Extra Strength 1,000 mg PO BID PRN 04/17/16 11/06/16 History Acetaminop] Aspirin EC TAB* [Ecotrin EC Low 81 mg PO DAILY 04/24/16 11/06/16 History Dose*] Lovastatin (NF) [Mevacor (NF)] 80 mg PO BEDTIME 05/02/16 11/06/16 History Warfarin TAB(*) [Coumadin TAB(*)] 5 mg PO DAILY 05/02/16 11/06/16 History Metoprolol Succinate XL TAB* 100 mg PO DAILY 07/17/16 11/06/16 History [Toprol XL TAB*] Torsemide TAB* [Demadex*] 100 mg PO EVERY OTHER DAY 07/17/16 11/06/16 History - History of Current Complaint Chief Complaint: EDExtremityLower Stated Complaint: LEG PAIN Time Seen by Provider: 03/21/18 18:11 Hx Obtained From: Patient, Family/Patch Worker - daughter (who is a nurse at [employer] [place] Other: - Dr. Wolf Mechanism Of Injury: Other - no injury Onset of Pain: Days Onset/Duration: Days Severity Initially: Moderate Severity Currently: Severe Pain Intensity: 7 Pain Scale Used: 0-10 Numeric Timing: Constant Location: Is Discrete @ - bilat feet Character Of Pain: Sharp, Aching, Burning Associated Signs And Symptoms: Positive: Swelling, Fever, Other - pos: vomiting , pale Aggravating Factor(s): Standing, Ambulation Alleviating Factor(s): Nothing Able to Bear Weight: No - too painful - Allergies/Home Medications Allergies/Adverse Reactions: Allergies Allergy/AdvReac Type Severity Reaction Status Date / Time niacin Allergy Severe Airway Verified 03/22/18 00:32 Obstruction Penicillins Allergy Severe Anaphylatic Verified 03/22/18 00:32 Shock amiodarone Allergy See Comment Verified 03/22/18 00:32 bupropion Allergy Shakes Verified 03/22/18 00:35 codeine Allergy See Comment Verified 03/22/18 00:35 Home Medications: Home Medications Albuterol HFA INHALER* [Ventolin HFA Inhaler*] 2 puff INH Q4H PRN 03/21/18 [ History Confirmed 03/21/18] Cholecalciferol (Vitamin D3) [D3-2000] 2,000 unit PO DAILY 03/21/18 [History Confirmed 03/21/18] Cyanocobalamin (Vitamin B-12) [B-12] 1,000 mcg PO DAILY 03/21/18 [History Confirmed 03/21/18] Hydrocodone/Acetaminophen [Hydrocodone-Acetamin 5-325 mg] 1 - 2 tab PO Q4H PRN 03/21/18 [History Confirmed 03/21/18] Metoprolol Tartrate 50 mg PO BID 03/21/18 [History Confirmed 03/21/18] Ondansetron [Zofran Odt] 4 mg PO Q4H PRN 03/21/18 [History Confirmed 03/21/18] Spironolactone 12.5 mg PO DAILY 03/21/18 [History Confirmed 03/21/18] PMH/Surg Hx/FS Hx/Imm Hx Previously Healthy: No Endocrine/Hematology History: Reports: Hx Thyroid Disease Denies: Hx Diabetes, Hx Anemia Cardiovascular History: Reports: Hx Auto Implanted Cardiovert Defib - d/t V fib , Hx Congestive Heart Failure, Hx Coronary Artery Disease, Hx Hypercholesterolemia, Hx Hypertension, Hx Pacemaker/ICD, Other Cardiovascular Problems/Disorders - Ventricular tachycardia, ventricular fibrillation, cardiomyopathy Denies: Hx Peripheral Vascular Disease Respiratory History: Reports: Hx Chronic Obstructive Pulmonary Disease (COPD) Denies: Hx Asthma GI History: Reports: Hx Gastroesophageal Reflux Disease Denies: Hx Jaundice, Hx Ulcer Musculoskeletal History: Reports: Hx Arthritis - OA, Hx Back Problems - Spinal stenosis, Hx Fibromyalgia, Other Musculoskeletal History - knee surgery Denies: Hx Osteoporosis Sensory History: Reports: Hx Cataracts - BILAT., Hx Contacts or Glasses Denies: Hx Hearing Aid Opthamlomology History: Reports: Hx Cataracts - BILAT., Hx Contacts or Glasses Neurological History: Reports: Hx Headaches Denies: Hx Seizures, Hx Transient Ischemic Attacks (TIA) Psychiatric History: Reports: Hx Depression - ON MED - Cancer History Hx Chemotherapy: No Hx Radiation Therapy: No - Surgical History Surgery Procedure, Year, and Place: Tubal ligation 1970. Hysterectomy 1985. Cholecystectomy 1986. Right arthroscopic decompression of the shoulder 2001. Sphincterostomy 2005. Dual chamber ICD 1999, Generator changes in 08/2002, 2006, 08/2010 Hx Anesthesia Reactions: No - Immunization History Date of Tetanus Vaccine: Unk Infectious Disease History: No Infectious Disease History: Denies: Hx Clostridium Difficile, Hx Hepatitis, Hx Human Immunodeficiency Virus (HIV), Hx of Known/Suspected MRSA, Hx Shingles, Hx Tuberculosis, Hx Known/ Suspected VRE, Hx Known/Suspected VRSA, History Other Infectious Disease, Traveled Outside the [place] in Last 30 Days - Family History Known Family History: Positive: Cardiac Disease Family History: No FHx of Breast CA - Social History Occupation: Disabled Lives: Alone Alcohol Use: None Hx Substance Use: No Substance Use Type: Reports: None Hx Tobacco Use: Yes Smoking Status (MU): Current Some Day Smoker Type: Cigarettes Amount Used/How Often: 1/2 pack q day Have You Smoked in the Last Year: Yes Review of Systems Positive: Fever - subjective Cardiovascular: Negative Respiratory: Negative Positive: Vomiting Musculoskeletal: Other - pos: difficulty ambulating Positive: Edema - bilat LE, Other - pos: bilat LE foot pain Skin: Other - scabbed lesions to R foot, blue, dusky color bilat feet and toes Neurological: Negative Psychological: Normal All Other Systems Reviewed And Are Negative: Yes Physical Exam - Summary Physical Exam Summary: Appearance: Well-appearing, moderate pain distress, well-nourished Skin: Warm, dry. 6 scabbed lesions on dorsum of R foot. Dusky toes on L and R foot. Redness on MTP to ankle bilaterally. Mild mottling at both knees. Head: Normal Head/Face inspection, atraumatic Eyes: Conjunctiva clear ENT: Normal inspection Neck: Supple, no nodes, no JVD Respiratory: Few scattered expiratory wheezes bilaterally Cardio: RRR, No murmur, pulses diminished to absent popliteal, posterior tibial and dorsalis pedis, delayed capillary refill bilat feet Abdomen: Soft, nontender, no masses, nondistended Bowel sounds: Present Musculoskeletal: Strength Intact/ROM intact, no calf tenderness, swelling bilat feet,skin changes of knees and feet and toes as above. Psychological: Normal Neuro: Alert, muscle tone normal, no focal deficit Triage Information Reviewed: Yes Vital Signs On Initial Exam: Initial Vitals Temp Pulse Resp BP Pulse Ox 98.4 F 80 18 116/70 100 03/21/18 17:24 03/21/18 17:24 03/21/18 17:24 03/21/18 17:24 03/21/18 17:24 Vital Signs Reviewed: Yes Diagnostics - Vital Signs Vital Signs Temp Pulse Resp BP Pulse Ox 03/21/18 17:24 98.4 F 80 18 116/70 100 - Laboratory Result Diagrams: 03/21/18 20:33 03/21/18 20:33 Lab Statement: Any lab studies that have been ordered have been reviewed, and results considered in the medical decision making process. - Radiology CXR Radiology Interpretation Completed By: ED Physician Summary of Radiographic Findings: NAD. - Ultrasound No standard instances Summary of Ultrasound Findings: Extremity Arterial U/S: IMPRESSION: Normal right RAY 0.98, and normal left RAY 1.05. ED provider has reviewed this report. - EKG 1852 Cardiac Rate: NL EKG Comparison: No Significant Change - from 07/17/16 Summary of EKG Findings: EKG at 1852: PACED. No STEMI. Re-Evaluation - Re-Evaluation 1 Re-Evaluation Time: 20:33 Change: Unchanged Comment: O2 sat 91% on room air. Pt still has wheezes. Pt is agreeable to admission. 2 Re-Evaluation Time: 21:37 Change: Improved Comment: Discussing results with pt and plans to admit. Pt and family voiced understanding. O2 sats are 88%. Pt is comfortable. Lower Extremity Course/Dx - Course Course Of Treatment: Pt is a 72 y/o F referred from Dr. Wolf, PCP, for poor pedal pulses and to r/o DVT, presents with bilat feet pain onset two day ago. Pain described as sharp and shooting on posterior side of LE. She was seen yesterday by Dr. Wolf's SHIFT FOREMAN for her L foot because it was red, swollen and painful, dx: cellulitis. Pt was having difficulty ambulating due to the pain. Pt was given Doxy, but vomited after taking it. Pt has healing lesions on her R foot from an allergic reaction to tape. PMHx: arthritis. Extremity Arterial U/ S shows "Normal right RAY 0.98, and normal left RAY 1.05." ABG show: pH: 7.48. pO2: 65. Base excess: 6.4. Lab results include Lactic acid: 2.4 and BNP: 277. CXR shows no acute disease. Care discussed with pt's PCP, Dr. Pilar Wolf. Consulted with Dr. Alejo, hospitalist, who will admit patient. Allergies noted. Pt medications reviewed this visit. - Diagnoses Differential Diagnosis/HQI/PQRI: Positive: Cellulitis, DVT, Infection, Other - arterial occlusion Provider Diagnoses: Tobacco abuse disorder, Hypoxia, Bronchospasm, Inability to ambulate due to ankle or foot, Peripheral vascular disease, Lower extremity pain, bilateral, Acute exacerbation of chronic obstructive pulmonary disease (COPD), Congestive heart failure with left ventricular systolic dysfunction - Physician Notifications Discussed Care Of Patient With: Pilar Wolf - PCP Time Discussed With Above Provider: 20:26 Instructed by Provider To: Other - Recommends admission and checking blood gases. - Critical Care Time Critical Care Time: 30-74 min - 30 mins Discharge - Sign-Out/Discharge Documenting (check all that apply): Patient Departure - ADMIT - Discharge Plan Condition: Stable Disposition: ADMITTED TO [facility] - Billing Disposition and Condition Condition: STABLE Disposition: Admitted to [facility] - Attestation Statements Document Initiated by Elyseibe: Yes Documenting Scribe: Quentin Edwards Provider For Whom Scribe is Documenting (Include Credential): Dr. Maria Del Rosario Rubin MD Scribe Attestation: Quentin Driver, scribed for Dr. Maria Del Rosario Rubin MD on 03/26/18 at 2258. Scribe Documentation Reviewed: Yes Provider Attestation: The documentation as recorded by the Quentin mathew accurately reflects the service I personally performed and the decisions made by , Dr. Maria Del Rosario Rubin MD Consult Consult: [id number]: Consult with Dr. Alejo, hospitalist Will admit pt.
--- NOTE | 2018-03-21 20:21 | RAD ---
EXAM: US Bilateral Noninvasive Physio Study Up Or Lwr Extrem Art 1 Or 2 Levels Ltd CLINICAL HISTORY: 72 years old, female; Pain; Leg, lower; Bilateral; Additional info: Dusky feet, lack of pulses, painful feet TECHNIQUE: Real-time ultrasound of the bilateral noninvasive physio study up or lwr extrem art 1 or 2 levels ltd with image documentation. COMPARISON: US Lower Arterial 02/05/2015 9:43 AM FINDINGS: Normal right RAY 0.98, and normal left RAY 1.05. Triphasic arterial waveforms documented in bilateral posterior tibial and dorsalis pedis arteries. IMPRESSION: Normal right RAY 0.98, and normal left RAY 1.05. To contact [facility] with a general question: [facility] - [phone] For direct physician to physician contact: Physician Hotline - [phone] [facility] ([facility] Facility ID #[id number])
[2018-03-21] MEDS ORDERED: Albuterol/Ipratropium NEB.SOL* Albuterol 2.5 MG/Ipratropium 0.5 MG 3 ML INH ONE (20:39)
[2018-03-21] MEDS ORDERED: HYDROcodone/ACETAMIN 5-325 MG* 1 TAB PO ONE (20:39)
[2018-03-21 20:43] LABS: ABS Basophils 0.1 10^3/ul (0-0.2); ABS Eosinophils 0.1 10^3/ul (0-0.6); ABS Lymphocytes 2.1 10^3/ul (1.0-4.8); ABS Monocytes 0.7 10^3/ul (0-0.8); ABS Neutrophils 4.6 10^3/ul (1.5-7.7); ABS Nucleated RBC 0 10^3/ul; Eosinophil % 0.9 % (0-6); Hematocrit 45 % (35-47); Hemoglobin 14.8 g/dl (12.0-16.0); Lymphocyte % 28.1 % (25-47); Mean Corpuscular HGB Conc 33 g/dl (31-36); Mean Corpuscular Hemoglobin 31 pg (27-31); Mean Corpuscular Volume 95 fL (80-97); Mean Platelet Volume 9.2 um3 (7.4-10.4); Nucleated Red Blood Cells % 0.1; Platelet Count 200 10^3/ul (150-450); Red Blood Count 4.77 10^6/ul (4.00-5.40); Red Cell Distribution Width 14 % (10.5-15); White Blood Count 7.6 10^3/ul (3.5-10.8)
[2018-03-21 20:53] LABS: INR 2.55 (0.77-1.02)
[2018-03-21 21:00] LABS: EGFR Non-African American 41.9 (>60)
[2018-03-21] MEDS ORDERED: Acetaminophen TAB* 325 MG PO PRN (22:26)
[2018-03-21] MEDS ORDERED: Albuterol HFA INHALER* 8 gm MDI INH PRN (22:29)
[2018-03-21] MEDS ORDERED: Ondansetron ODT TAB* 4 MG PO PRN (22:29)
--- NOTE | 2018-03-21 23:16 | RAD ---
EXAM: CT Lumbar Spine Without Intravenous Contrast EXAM DATE/TIME: 03/21/2018 10:51 PM CLINICAL HISTORY: 72 years old, female; Signs and symptoms; Other: Per PT discolored feet difficultly with ambulation; Additional info: R/O spinal stenosis TECHNIQUE: Axial computed tomography images of the lumbar spine without intravenous contrast. All CT scans at this facility use at least one of these dose optimization techniques: automated exposure control; mA and/or kV adjustment per patient size (includes targeted exams where dose is matched to clinical indication); or iterative reconstruction. Coronal and sagittal reformatted images were created and reviewed. COMPARISON: SP L WO CT SPINE LUMBAR W/O 05/04/2015 4:55 PM FINDINGS: Vertebrae: No fracture or subluxation. No focal bony lesion. Mild stenoses elsewhere. Discs/Spinal canal/Neural foramina: Gradual progression in degenerative joint and disc change without dominant disc herniation or critical stenosis. Moderate central canal narrowing L3-L4 contributed to by mildly bulging disc and moderate facet arthropathy. Moderate to severe central canal narrowing L4-L5 contributed to by a bulging disc, marginal osteophytes, and pronounced facet arthropathy and hypertrophy. Soft tissues: Unremarkable. Vasculature: Moderate atherosclerosis. IMPRESSION: 1. No fracture or subluxation. No focal bony lesion. 2. Gradual progression in degenerative joint and disc change without dominant disc herniation or critical stenosis. 3. Moderate central canal narrowing L3-L4 contributed to by mildly bulging disc and moderate facet arthropathy. 4. Moderate to severe central canal narrowing L4-L5 contributed to by a bulging disc, marginal osteophytes, and pronounced facet arthropathy and hypertrophy. 5. Mild stenoses elsewhere. To contact [facility] with a general question: [facility] - [phone] For direct physician to physician contact: Physician Hotline - [phone] [facility] ([facility] Facility ID #[id number])
[2018-03-22] MEDS: HYDROcodone/ACETAMIN 5-325 MG* 1 TAB PO PRN ×6 (00:27→23:33)
--- NOTE | 2018-03-22 05:39 | HP ---
CC: Dr. Pilar Wolf; Dr. Elder * HISTORY AND PHYSICAL: DATE OF ADMISSION: 03/21/18 PRIMARY CARE PROVIDER: Dr. Pilar Wolf. SEALER DRY CELL: Dr. Elder. CHIEF COMPLAINT: Bilateral leg pain and swelling and engorgement when the patient's feet are down or walking. HISTORY OF PRESENT ILLNESS: Carolnia Guajardo is a 72-year-old female with history of chronic atrial fibrillation paced currently as well as coronary artery disease, ischemic cardiomyopathy with EF of 10% who had been in her usual state of health when 2 weeks ago, she started developing what appeared to be engorgement of bilateral feet when she was on her feet for longer or when letting them down when sitting. She also noted when she was walking, the more she walked, the more she had severe "shooting pains" in the back of her bilateral calves. During the exam, the patient demonstrated that he feet appeared "normal" when up but when she put them down, they started turning color to purple and appeared engorged. She also noted that she had marked bilateral lower extremity edema with walking. Her ankle brachial indices were performed in the emergency room and were "normal." As per the discussion between Dr. Rubin, the ED provider, and Dr. Wolf, the patient's primary care provider, an admission was requested for the patient's painful bilateral lower extremities for further evaluation. PAST MEDICAL HISTORY: 1. History of ischemic cardiomyopathy with EF of 10% to 15%. 2. History of chronic atrial fibrillation, currently with ventricularly paced with the pacemaker. 3. History of COPD, not on oxygen. 4. History of hypothyroidism. 5. History of coronary artery disease, status post stenting. 6. History of ventricular fibrillation, status post AICD. 7. CVA, ischemic. 8. dyslipidemia. 9. Obesity. 10. Hypertension. 11. Gastroesophageal reflux disease. 12. Anxiety. 13. Depression. 14. History of spinal stenosis. 15. Fibromyalgia. 16. Hyperlipidemia. 17. Status post hysterectomy. 18. Tubal ligation remotely. 19. Cholecystectomy in 1986. 20. Shoulder surgery. 21. Arthroscopic decompression in 2001. MEDICATIONS: Medications at home include: 1. Coumadin 5 mg daily. 2. Lovastatin 40 mg daily. 3. Mag ox 200 mg daily. 4. Venlafaxine ER 75 mg daily. 5. Potassium chloride 20 mEq daily. 6. Levoxyl 75 mcg daily. 7. Aspirin 81 mg daily. 8. Torsemide 100 mg daily. 8. Vitamin B12 1000 mcg daily. 9. Aldactone 12.5 mg daily. 10. Albuterol inhaler on a p.r.n. basis. 11. Metoprolol tartrate, the patient takes 50 mg twice a day. 12. Hydrocodone with acetaminophen on a p.r.n. basis. 13. She was prescribed doxycycline by her primary care provider, but she did not tolerate it and she vomited. ALLERGIES: Include PENICILLIN, unknown reaction; BUPROPION, GI upset; AMIODARONE, dyspnea; CODEINE, GI upset; and NIACIN, also GI upset. FAMILY HISTORY: Positive for father, who of [place] at the age of 45. Mother, who of heart disease at the age of 56. SOCIAL HISTORY: The patient is a , lives alone. She is on disability. Her surrogate is her daughter, Christie Hernandez, who is a nurse at [employer]. She smokes 3 cigarettes a week. Denies any alcohol or drug use. Ambulates without any need of support. REVIEW OF SYSTEMS: Apartment from the above mentioned history of present illness, the patient stated that she was diagnosed with "athlete's foot" and she used a cream on her feet. She stated that she used to tape that she thought she was not allergic to and it stuck to her right foot and caused the blisters. Currently, the blisters are improving on the dorsal aspect of the right foot. She has had problems with occasional wheezing due to her COPD. She continues to smoke. Her weight had been stable. The patient denies any fevers. The patient denies any paroxysmal nocturnal dyspnea or chest pain. All the remaining 12 systems were reviewed with the patient and were otherwise negative. PHYSICAL EXAMINATION GENERAL: The patient is a very pleasant 72-year-old female with a BMI of 36. The patient was in no acute distress. Alert, awake, and oriented x3. VITAL SIGNS: Blood pressure of 114/86, heart rate of 81 and regular, respiratory rate 18, oxygen saturation 98% on room air, temperature of 98.4. HEENT: Head atraumatic, normocephalic. Eyes: Pupils are equal and reactive to light and accommodation. Oropharynx clear. Mucosa moist. NECK: Supple. No JVD. No bruit bilaterally. RESPIRATORY: Scattered wheezes in bilateral mid lungs. CARDIOVASCULAR: Regular rate and rhythm. No murmur. ABDOMEN: Protuberant, soft, nontender. Bowel sounds present in all 4 quadrants. EXTREMITIES: There is no edema. Pulses are poorly palpable, but present bilaterally equally. There is no clubbing or cyanosis. When the patient sits up with her feet down and then stands up, the feet become engorged, start slow trace edema developing. They are cool to touch. Their color changes to purple. With walking, the patient complains of severe shooting pain in the back of her calves when walking. NEUROLOGIC: On neuro evaluation, cranial nerves II through XII grossly intact. Motor strength is 5/5 bilaterally. SKIN: On evaluation of the skin, the patient has partially healed blisters on the dorsum of her right foot. There is no evidence of ongoing cellulitis or infection. Overall, the skin on her feet is dry and flaky with no evidence of cellulitis. DIAGNOSTIC STUDIES/LAB DATA: Sodium of 141, potassium 1.7, chloride 100, carbon dioxide 34, BUN 17, creatinine 1.26. Liver function test unremarkable apart from alkaline phosphatase slightly elevated to 152, which is chronic. The patient's brain natriuretic peptide was 277, troponin of 0.02. TSH of 2, lactic acid was 2.4. White blood cell count of 7.6, hemoglobin 14.8, hematocrit of 45, and platelets of 200. INR is therapeutic at 2.55. D-dimer below 200. ABG showed pH of 7.48, pCO2 of 41, pO2 of 65, bicarb of 29.8. The patient's ankle brachial indices obtained in the emergency room, impression : "Normal right RAY of 0.98 and normal left RAY of 1.05." The patient's portable chest x-ray was reviewed by myself, showed atelectasis at the right lung base. No acute infiltrate noted. The patient's EKG showed ventricularly paced complexes with a heart rate of 81 beats per minute. ASSESSMENT AND PLAN: 1. Painful feet with engorged skin and leg edema whenever the patient starts to ambulate or put her feet down. At this point, the differential includes neurogenic claudication versus venous insufficiency. The patient also may have both of the problems. Normal ankle branchial indices indicating low probability of significant arterial compromise. The patient does have thready pulses that is probably due to her low baseline ejection fraction. At this point, due to the pacemaker history, the patient is unable to get an MRI of her back. I will obtain CT of the lumbar spine to rule out spinal stenosis. I will also obtain venous Dopplers of bilateral lower extremities. 2. For history of chronic systolic congestive heart failure, I will continue the patient's outpatient diuretics. The patient today appears euvolemic. 3. For the patient's chronic obstructive pulmonary disease, she has a slight wheeze on evaluation. She still smokes. Her albuterol is going to be continued on a p.r.n. basis. The patient chronic obstructive pulmonary disease does not appear to be in exacerbation. 4. For the patient's history of hypertension, her metoprolol is going to be continued. 5. DVT prophylaxis, the patient is anticoagulated with Coumadin and INR is going to be checked on a daily basis. 6. The patient's code status is full and her surrogate is her daughter, Christie. TIME SPENT: Approximately 62 minutes were spent on admission of this patient, more than half that time was spent [id number] with the patient during the interview and physical exam. [id number]/[facility] #: [id number] JESUS ALBERTO
[2018-03-22] MEDS: Levothyroxine TAB* 75 MCG TAB PO SCH (06:22)
--- NOTE | 2018-03-22 07:51 | RAD ---
Indication: Shortness of breath. Single view of the chest including dual energy PA views demonstrates cardiomegaly. Pacemaker leads are in place. Lung cross appear grossly unremarkable. No pleural fluid or pneumonia is identified. When compared to previous exam of July 17, 2016 no significant change is noted. IMPRESSION: Cardiomegaly. Pacemaker leads in place. No active cardiopulmonary disease is noted. R0
[2018-03-22 07:57] LABS: Urine Appearance Clear; Urine Blood Negative (Negative); Urine Color Yellow; Urine Ketones Negative (Negative); Urine Protein Negative (Negative); Urine Specific Gravity 1.016 (1.010-1.030); Urine Urobilinogen Negative (Negative)
[2018-03-22 09:17] LABS: INR 2.6 (0.77-1.02)
[2018-03-22] MEDS: Torsemide TAB* 20 MG PO SCH (09:23)
[2018-03-22] MEDS: Metoprolol Tartrate TAB* 50 mg PO SCH ×2 (09:23→21:33)
[2018-03-22] MEDS: Aspirin EC TAB* 81 MG TAB.EC PO SCH (09:23)
[2018-03-22] MEDS: Potassium Chlor TAB* 20 MEQ TAB.ER PO SCH (09:24)
[2018-03-22] MEDS: Magnesium Oxide TAB* 400 MG PO SCH (09:25)
[2018-03-22] MEDS: Spironolactone TAB* 25 MG PO SCH (09:26)
--- NOTE | 2018-03-22 09:31 | RAD ---
INDICATION: Bilateral lower extremity cyanosis when standing. COMPARISON: No relevant prior exams available on the [facility] PACS for comparison. TECHNIQUE: Chavez scale, color Doppler, and spectral analysis of the deep veins of the BILATERAL lower extremities. Vessel compression, phasicity, and augmentation assessed. REPORT: The RIGHT common femoral, great saphenous, profunda femoral, femoral, popliteal, peroneal, and posterior tibial veins are patent. The LEFT common femoral, great saphenous, profunda femoral, femoral, popliteal, peroneal, and posterior tibial veins are patent. IMPRESSION: Negative for RIGHT or LEFT lower extremity DVT.
[2018-03-22] MEDS ORDERED: Warfarin TAB(*) 5 MG PO SCH (17:00)
--- NOTE | 2018-03-22 18:49 | CONSULT ---
Consult Consult: Date of Service: 03/22/18 Reason for Consultation: Erythema, welling and pain at the bilateral feet x 2 weeks Requesting Physician: Adrián Wolf MD Admission Date: 03/21/18 HISTORY AND PHYSICAL: CHIEF COMPLAINT: Bilateral leg pain and swelling and engorgement when the patient's feet are down or walking. (Focused) HPI: Carolina Guajardo is a 72-year-old female with history of chronic atrial fibrillation paced currently as well as coronary artery disease, ischemic cardiomyopathy with EF of 10% who had been in her usual state of health when 2 weeks ago, she started developing what appeared to be engorgement of bilateral feet when she was on her feet for longer or when letting them down when sitting. She also noted when she was walking, the more she walked, the more she had severe "shooting pains" in the back of her bilateral calves. Prior to this experience that patient reports no symptoms characteristic of claudication or rest pain. She could walk continuously without pain. She reports having right leg varicsoe veins "for years". She denies any varicose veins at her pelvis. She had bleeding hemorrhoids during , but not later in life. She denies ever having a DVT. She has several ulcers on her right foot that she attributes to an allergic response to tape. She smokes 3 cigarettes weekly in her effort to "cut down" from a PPD smoking habit earlier in her life. PAST MEDICAL/SURGICAL HISTORY: 1. History of ischemic cardiomyopathy with EF of 10% to 15%. 2. History of chronic atrial fibrillation, currently with ventricularly paced with the pacemaker. 3. History of COPD, not on oxygen. 4. History of hypothyroidism. 5. History of coronary artery disease, status post stenting. 6. History of ventricular fibrillation, status post AICD. 7. CVA, ischemic. 8. dyslipidemia. 9. Obesity. 10. Hypertension. 11. Gastroesophageal reflux disease. 12. Anxiety. 13. Depression. 14. History of spinal stenosis. 15. Fibromyalgia. 16. Hyperlipidemia. 17. Status post hysterectomy. 18. Tubal ligation remotely. 19. Cholecystectomy in 1986. 20. Shoulder surgery. 21. Arthroscopic decompression in 2001. MEDICATIONS: Medications at home include: 1. Coumadin 5 mg daily. 2. Lovastatin 40 mg daily. 3. Mag ox 200 mg daily. 4. Venlafaxine ER 75 mg daily. 5. Potassium chloride 20 mEq daily. 6. Levoxyl 75 mcg daily. 7. Aspirin 81 mg daily. 8. Torsemide 100 mg daily. 8. Vitamin B12 1000 mcg daily. 9. Aldactone 12.5 mg daily. 10. Albuterol inhaler on a p.r.n. basis. 11. Metoprolol tartrate, the patient takes 50 mg twice a day. 12. Hydrocodone with acetaminophen on a p.r.n. basis. ALLERGIES: Include PENICILLIN, unknown reaction; BUPROPION, GI upset; AMIODARONE, dyspnea; CODEINE, GI upset; and NIACIN, also GI upset. FAMILY HISTORY: Positive for father, who of [place] at the age of 45. Mother, who of heart disease at the age of 56. SOCIAL HISTORY: The patient is a , lives alone. She is on disability. Her surrogate is her daughter, Christie Hernandez, who is a nurse at [employer]. She smokes 3 cigarettes a week. Denies any alcohol or drug use. Ambulates without any need of support. REVIEW OF SYSTEMS: The patient stated that she was diagnosed with "athlete's foot" and she used a cream on her feet. She stated that she used to tape that she thought she was not allergic to and it stuck to her right foot and caused the blisters. Currently, the blisters are improving on the dorsal aspect of the right foot. She has had problems with occasional wheezing due to her COPD. She continues to smoke. The patient denies any fevers. The patient denies any paroxysmal nocturnal dyspnea or chest pain. All the remaining 12 systems were reviewed with the patient and were otherwise negative. PHYSICAL EXAMINATION: Selected Entries 03/22/18 03/22/18 11:24 18:23 Temperature 97.8 F Temperature Oral Source Pulse Rate 166 Respiratory 16 Rate Blood Pressure 99/62 (mmHg) Blood Pressure 72 Mean O2 Sat by Pulse 97 Oximetry Patient on Room Yes Air NAD, AAO x 3 RRR, S1/S2 CTAB with vesicular breath sounds Feet and lower legs are violaceous and/or eythematous She has a series of ~4 mm varicose veins along her posteromedial right lower leg into her right inner thigh No significant varicose vein burden at left leg No swelling or pitting edema observed 1+ pulses palpated at B/L [employer] 1+ popliteal arteries Questionable palpation of pedal arteries 2+ UE pulses bilaterally Multiple dry scabs on dorsal right foot Relevant Labs: Laboratory Tests 03/21/18 03/21/18 03/21/18 20:33 20:33 20:33 WBC 7.6 RBC 4.77 Hgb 14.8 Hct 45 Plt Count 200 INR (Anticoag Therapy) APTT 42.4 H BUN 17 Creatinine 1.26 H Est GFR ( Amer) 50.7 B-Natriuretic Peptide 03/21/18 03/22/18 20:33 08:42 WBC RBC Hgb Hct Plt Count INR (Anticoag Therapy) 2.60 H APTT BUN Creatinine Est GFR ( Amer) B-Natriuretic Peptide 277 H Imaging: Patient Name: CAROLINA GUAJARDO Medical Record#: [id number] Ordering Physician: Deneen Alejo MD Acct.#: [id number] : 1945 Age: 72 Sex: F Location: SURGICAL STAY UNIT Exam Date: 03/22/18 ADM Status: ADM Elizabeth Order Information: VL LOWER EXT VEINS BILATERAL Accession Number: [id number] CPT: 83635 INDICATION: Bilateral lower extremity cyanosis when standing. COMPARISON: No relevant prior exams available on the [facility] PACS for comparison. TECHNIQUE: Chavez scale, color Doppler, and spectral analysis of the deep veins of the BILATERAL lower extremities. Vessel compression, phasicity, and augmentation assessed. REPORT: The RIGHT common femoral, great saphenous, profunda femoral, femoral, popliteal, peroneal, and posterior tibial veins are patent. The LEFT common femoral, great saphenous, profunda femoral, femoral, popliteal, peroneal, and posterior tibial veins are patent. IMPRESSION: Negative for RIGHT or LEFT lower extremity DVT. <Electronically signed by Terrell Headley MD in OV> 03/22/18927 Dictated By: Terrell Headley MD Dictated Date/Time: 03/22/18927 Transcribed Date/Time: 03/22/18924 Patient Name: CAROLINA GUAJARDO Medical Record#: [id number] Ordering Physician: Maria Del Rosario Rubin MD Acct.#: [id number] : 1945 Age: 72 Sex: F Location: EMERGENCY DEPARTMENT Exam Date: 03/21/181817 ADM Status: REG ER Order Information: VL ANK/BRACHIAL INDICES Accession Number: [id number] CPT: 41814 EXAM: US Bilateral Noninvasive Physio Study Up Or Lwr Extrem Art 1 Or 2 Levels Ltd CLINICAL HISTORY: 72 years old, female; Pain; Leg, lower; Bilateral; Additional info: Dusky feet, lack of pulses, painful feet TECHNIQUE: Real-time ultrasound of the bilateral noninvasive physio study up or lwr extrem art 1 or 2 levels ltd with image documentation. COMPARISON: US Lower Arterial 02/05/2015 9:43 AM FINDINGS: Normal right RAY 0.98, and normal left RAY 1.05. Triphasic arterial waveforms documented in bilateral posterior tibial and dorsalis pedis arteries. IMPRESSION: Normal right RAY 0.98, and normal left RAY 1.05. To contact [facility] with a general question: [facility] - [phone] For direct physician to physician contact: Physician Hotline - [phone] [facility] ([facility] Facility ID #[id number]) <Electronically signed by Ashkan Tapia MD in OV> 03/21/182020 Dictated By: Ashkan Tapia MD Dictated Date/Time: 03/21/182020 Transcribed Date/Time: Copy to: Assessment: 72 YOF with 2 week of bilateral lower extremity and feet pain, swelling and discoloration. Differential Diagnosis Includes: 1. PAD 2. Venous hypertension 3. Cellulitis 4. Neuropathy 5. Fluid Overload (supported by elevated B-Natriuretic Peptide) Plan: 1. Review 2015 CT A&P to evaluate for possible venous compression syndromes (CT imaging not available at the time of this note). 2. Possibly recommend CTA w/ runoff including venous phase imaging of the A&P and legs.
[2018-03-22] MEDS ORDERED: Venlafaxine EXT RELEASE CAP* 75 MG PO SCH (21:00)
[2018-03-23] MEDS: HYDROcodone/ACETAMIN 5-325 MG* 1 TAB PO PRN (03:40)
[2018-03-23] MEDS: Levothyroxine TAB* 75 MCG TAB PO SCH (05:43)
[2018-03-23 07:56] VITALS: BP 120/72
[2018-03-23] MEDS: Metoprolol Tartrate TAB* 50 mg PO SCH (08:42)
[2018-03-23] MEDS: Torsemide TAB* 20 MG PO SCH (08:42)
[2018-03-23] MEDS: Magnesium Oxide TAB* 400 MG PO SCH (08:43)
[2018-03-23] MEDS: Spironolactone TAB* 25 MG PO SCH (08:43)
[2018-03-23] MEDS: Aspirin EC TAB* 81 MG TAB.EC PO SCH (08:43)
[2018-03-23] MEDS: Potassium Chlor TAB* 20 MEQ TAB.ER PO SCH (08:43)
--- NOTE | 2018-03-23 11:52 | DS ---
DISCHARGE SUMMARY: DATE OF ADMISSION: 03/21/18 DATE OF DISCHARGE: 03/23/18 DISCHARGE DIAGNOSES: 1. Bilateral lower extremity pain likely due to plantar fasciitis. 2. Spinal stenosis. 3. Cardiomyopathy. 4. History of ventricular fibrillation with automatic implantable cardioverter - defibrillator/pacemaker. 5. Coronary artery disease. 6. Venous insufficiency of the lower extremities. 7. History of atrial fibrillation. 8. Chronic warfarin therapy. 9. Impaired fasting glucose. 10. History of chronic obstructive pulmonary disease. 11. Hypothyroidism. 12. History of depression. 13. Tobacco abuse. 14. History of cerebrovascular accident. 15. Hyperlipidemia, treated. 16. Obesity. 17. History of hypertension. 18. Gastroesophageal reflux disease. 19. History of anxiety. HISTORY: Carolina Guajardo is a 72-year-old woman admitted with pain in her feet. Please see the dictated admission note for details of the present illness, past medical history, family history, social and personal history, review of systems , and physical examination. DIAGNOSTIC STUDIES/LAB DATA: CBC: WBC 7.6, H and H 14.8/45, MCV 95, PLT 200, 000. INR 2.55 on 03/21/18, 2.60 on 03/22/18, PTT 42.4, D-dimer less than 200. ABG: pH 7.48, pCO2 of 41, pO2 of 65. Chemistries: Sodium 141, potassium 4.7, chloride 100, CO2 of 34, BUN and creatinine 17/1.26, glucose 93, lactic acid 2.4. Rest of the comprehensive metabolic panel was within normal limits except for alk phos 152. BNP mildly elevated at 277. Troponins were 0.02, 0.02. TSH normal at 2. CK and CK-MB were normal. Urinalysis was unremarkable. IMAGING: Arterial study of the lower extremities showed normal RAY's 0.98 on the right and 1.05 on the left. Chest x-ray on 03/21/18 showed cardiomegaly, pacemaker leads in place. No acute cardiopulmonary disease noted. Lumbar CT on 03/21/18 was compared to previous CT of the lumbar spine done 05/04/18, showed gradual progression in degenerative joint and disk change without dominant disk herniation or critical stenosis with moderate central canal narrowing L3-4, [id number] central canal narrowing at L4-5 and mild stenosis elsewhere. Venous Doppler study 03/22/18 was negative for right or left lower extremity DVT. EKG on 03/21/18 showed ventricular paced rhythm. HOSPITAL COURSE: The patient was admitted from the emergency room. Initial impression was that the patient had neurogenic claudication versus venous insufficiency. It was felt that she had low likelihood of arterial compromise based on her normal ABIs. It was felt that she had thready pluses due to low baseline ejection fraction. CT of the lumbar spine was ordered. She also had venous Dopplers of the bilateral lower extremities. Her usual medications were continued. Her Coumadin was continued. She was made a full code. DVT prophylaxis was with her usual warfarin. On the day following admission, her feet continued to hurt when she was walking. She felt better when she had her feet elevated in bed. Her symptoms did not change throughout her hospitalization. She had a consultation with radiologist, Dr. Nichols. The question was whether she might have a false negative RAY study. He thought that was possible and suggested possible CTA with runoff including venous phase imaging of the abdomen, pelvis, and legs. I thought this was a reasonable plan. However, on 03/23/18, on physical examination her pulses were felt to be quite good and her feet were warm. It is not clear why they had not been palpable before. Perhaps, she has vasospasm at times. In any case, it is felt that the imaging was not absolutely necessary and would have some theoretical possible nephrotoxicity with her diminished GFR of 41.9. On exam, it seemed that her feet were tender on the plantar surfaces and that she likely does have plantar fasciitis as the cause for her pain. It is also possible that some of her symptoms are due to spinal stenosis. I felt that she could be discharged. MEDICATIONS: At time of discharge, she is to be on her usual home medications, which are: 1. Torsemide 100 mg daily. 2. Metoprolol 50 mg b.i.d. 3. Albuterol inhaler 2 puffs q.4 h. p.r.n. 4. Ondansetron 4 mg q.4 h. p.r.n. 5. Vitamin D 2000 units daily. 6. Hydrocodone/acetaminophen 5/325 mg 1 to 2 q.4 h. p.r.n. pain. 7. Spironolactone 25 mg one half daily. 8. Cyanocobalamin 1000 mcg daily. 9. Aspirin 81 mg daily. 10. Acetaminophen 1000 mg p.o. b.i.d. p.r.n. 11. Lovastatin 40 mg b.i.d. 12. Levothyroxine 75 mcg daily. 13. Magnesium oxide 200 mg daily. 14. Potassium chloride 20 mEq daily. 15. Warfarin 5 mg daily or as directed. 16. Venlafaxine 75 mg at bedtime. She is to try to quit smoking. ACTIVITIES: As tolerated. DIET: She is to have a usual diet. She was told to ice her feet 15 minutes 4 times a day, do stretching exercises as directed and to wear a night splint on her feet. FOLLOWUP: She will follow up with me in 1 to 2 weeks. [id number]/[facility] #: [id number] JESUS ALBERTO
== END 2018-03-23 11:50 | disposition home or self-care (01) ==
LOC: ED 17:22 → SSU 22:26
PROVIDERS: ADMIT Internal Medicine; ATTEND Internal Medicine Geriatric Medicine
DX: M79.605 Pain in left leg (principal); M79.604 Pain in right leg; M72.2 Plantar fascial fibromatosis; M48.00 Spinal stenosis, site unspecified; I42.9 Cardiomyopathy, unspecified; I49.01 Ventricular fibrillation; I25.10 Atherosclerotic heart disease of native coronary artery without angina pectoris; Z79.01 Long term (current) use of anticoagulants; R73.01 Impaired fasting glucose; J44.9 Chronic obstructive pulmonary disease, unspecified; E03.9 Hypothyroidism, unspecified; F17.210 Nicotine dependence, cigarettes, uncomplicated; Z86.73 Personal history of transient ischemic attack (TIA), and cerebral infarction without residual deficits; E78.5 Hyperlipidemia, unspecified; E66.9 Obesity, unspecified; I10 Essential (primary) hypertension; K21.9 Gastro-esophageal reflux disease without esophagitis; F41.9 Anxiety disorder, unspecified; Z79.82 Long term (current) use of aspirin; Z88.0 Allergy status to penicillin
CPT/HCPCS: 36415; 71045; 72131; 80053; 81003; 82550; 82553; 82803; 83605; 83735; 83880; 84443; 84484; 85025; 85379; 85610; 85730; 93005; 93922; 93970; 99284; A9270-GY; G0378; G8978-GP-CK; G8979-GP-CI

== ENCOUNTER 2020-07-14 16:07 | Inpatient (IN) ==
[2020-07-14 17:26] LABS: ABS Lymphocytes 1.1 10^3/ul (1.0-4.8); ABS Monocytes 0.5 10^3/ul (0-0.8); ABS Neutrophils 4.7 10^3/ul (1.5-7.7); Eosinophil % 0.7 %; Hematocrit 45 % (35-47); Hemoglobin 14.6 g/dL (12.0-16.0); Lymphocyte % 17.6 %; Mean Corpuscular HGB Conc 33 g/dL (31-36); Mean Corpuscular Hemoglobin 30 pg (27-31); Mean Corpuscular Volume 93 fL (80-97); Mean Platelet Volume 9.5 fL (7.4-10.4); Nucleated Red Blood Cells % 0.1; Platelet Count 204 10^3/uL (150-450); Red Blood Count 4.81 10^6 /uL (3.70-4.87); Red Cell Distribution Width 18 % (10-15); White Blood Count 6.4 10^3/uL (3.5-10.8)
[2020-07-14 17:34] LABS: INR 2.31 (0.82-1.09)
[2020-07-14 17:58] LABS: ALT 11 U/L (7-52); Albumin 3.7 g/dL (3.2-5.2); Albumin/Globulin Ratio 1.4 (1-3); Alkaline Phosphatase 124 U/L (34-104); BUN/Creatinine Ratio 14.2 (8-20); Blood Urea Nitrogen 20 mg/dL (6-24); Calcium 9.2 mg/dL (8.6-10.3); Chloride 95 mmol/L (101-111); EGFR African American 44.1 (>60); EGFR Non-African American 36.5 (>60); Globulin 2.7 g/dL (2-4); Glucose 89 mg/dL (70-100); Sodium 144 mmol/L (135-145); Total Protein 6.4 g/dL (6.4-8.9)
[2020-07-14 18:07] LABS: AST 26 U/L (13-39); Potassium 3.2 mmol/L (3.5-5.0)
[2020-07-14 18:08] LABS: Anion Gap 8 mmol/L (2-11); CO2 Carbon Dioxide 41 mmol/L (22-32)
[2020-07-14] MEDS ORDERED: Lactated Ringers 1000 ml BAG 1,000 ML IV ONE (18:10)
[2020-07-14] MEDS ORDERED: KCL 20 MEQ/100 ML IVPREMIX 20 MEQ/100 ML BAG IV ONE (18:10)
[2020-07-14 20:06] LABS: C Reactive Protein 10.91 mg/L (<8.01); Creatine Kinase 125 U/L (10-223); Magnesium 1.7 mg/dL (1.9-2.7)
[2020-07-14] MEDS ORDERED: Magnesium Sulfate 2 gm BAG 2 GM/50 ML BAG IVPB ONE (20:06)
[2020-07-14 20:19] LABS: Troponin I 0.03 ng/mL (<0.03)
[2020-07-14 20:21] LABS: Myoglobin 218.9 ng/mL (14.3-65.8)
[2020-07-14 20:28] LABS: Vitamin B12 597 pg/mL (180-914)
[2020-07-14] MEDS ORDERED: NS 0.9% 1000 ml BAG 1,000 ML IV SCH (20:30)
[2020-07-14 20:50] LABS: Erythrocyte Sed Rate 10 mm/Hr (0-29)
[2020-07-14 21:28] LABS: Urine Appearance Clear; Urine Bilirubin Negative (Negative); Urine Blood 1+ (Negative); Urine Color Yellow; Urine Glucose Negative (Negative); Urine Ketones Negative (Negative); Urine Nitrite Negative (Negative); Urine Protein Negative (Negative); Urine Specific Gravity 1.008 (1.010-1.030); Urine Urobilinogen Positive (Negative)
[2020-07-14 21:30] LABS: Urine Bacteria 1+ (Absent); Urine Red Blood Cell Trace(0-2/hpf) (Absent); Urine Squamous Epithelial Cell Present (Absent); Urine White Blood Cell Trace(0-5/hpf) (Absent)
[2020-07-14 22:50] LABS: Myoglobin 135.7 ng/mL (14.3-65.8)
[2020-07-14 22:51] LABS: Troponin I 0.04 ng/mL (<0.03)
[2020-07-14] MEDS: Venlafaxine XR 75 mg PO SCH (22:51)
[2020-07-15 04:44] LABS: ABS Monocytes 0.5 10^3/ul (0-0.8); ABS Neutrophils 4.4 10^3/ul (1.5-7.7); Eosinophil % 0.6 %; Hematocrit 42 % (35-47); Hemoglobin 13.6 g/dL (12.0-16.0); Lymphocyte % 16.1 %; Mean Corpuscular HGB Conc 32 g/dL (31-36); Mean Corpuscular Hemoglobin 30 pg (27-31); Mean Corpuscular Volume 93 fL (80-97); Mean Platelet Volume 9.1 fL (7.4-10.4); Nucleated Red Blood Cells % 0.1; Platelet Count 153 10^3/uL (150-450); Red Blood Count 4.52 10^6 /uL (3.70-4.87); Red Cell Distribution Width 18 % (10-15)
[2020-07-15 05:01] LABS: Anion Gap 6 mmol/L (2-11); BUN/Creatinine Ratio 16.8 (8-20); Blood Urea Nitrogen 18 mg/dL (6-24); CO2 Carbon Dioxide 36 mmol/L (22-32); Calcium 8.4 mg/dL (8.6-10.3); Chloride 99 mmol/L (101-111); EGFR African American 60.7 (>60); EGFR Non-African American 50.1 (>60); Glucose 102 mg/dL (70-100); Potassium 2.8 mmol/L (3.5-5.0); Sodium 141 mmol/L (135-145)
[2020-07-15 05:07] LABS: Troponin I 0.03 ng/mL (<0.03)
[2020-07-15 05:37] LABS: Magnesium 2.2 mg/dL (1.9-2.7)
[2020-07-15] MEDS ORDERED: Potassium Chlor 20 meq TAB.ER PO ONE (06:00)
[2020-07-15] MEDS ORDERED: KCL 20 MEQ/100 ML IVPREMIX 20 MEQ/100 ML BAG IV ONE (06:00)
[2020-07-15] MEDS ORDERED: Metoclopramide 5 MG/ML VIAL (10 mg) IV SLOW PU ONE (07:59)
[2020-07-15 08:02] LABS: Phosphorus 2.9 mg/dL (2.5-5.0)
[2020-07-15] MEDS: KCL 20 MEQ/100 ML IVPREMIX 20 MEQ/100 ML BAG IV SCH ×3 (08:39→14:51)
[2020-07-15] MEDS ORDERED: Potassium Chlor 20 meq TAB.ER PO SCH (09:00)
[2020-07-15] MEDS ORDERED: Aspirin EC 81 mg TAB.EC (enteric coated) PO SCH (09:00)
[2020-07-15 09:20] LABS: INR 2.08 (0.82-1.09)
[2020-07-15] MEDS ORDERED: Iodixanol (CONTRAST) 320 MG/ML 100 ML SDV IV ONE (10:26)
[2020-07-15] MEDS ORDERED: Furosemide 20 mg/2 ml IV VIAL IV SLOW PU ONE (13:47)
[2020-07-15] MEDS ORDERED: Albuterol/Ipratropium NEB.SOL (2.5/0.5 MG) 3 ML NEB.SOLN INH PRN (14:59)
[2020-07-15] MEDS ORDERED: DOBUTamine 2000 MCG/ML IVPREMX 500 MG/250 ML BAG IV ONE (16:26)
[2020-07-15] MEDS ORDERED: Norepinephrine 16MCG/ML IVPRE 4,000 MCG/250 ML BAG IV ONE (16:54)
[2020-07-15] MEDS ORDERED: Warfarin DAILY REMINDER **NOTE FOLLOW UP SCH (17:00)
[2020-07-15] MEDS ORDERED: DOBUTamine 2000 MCG/ML IVPREMX 500 MG/250 ML BAG IV SCH ×2 (17:00)
[2020-07-15] MEDS ORDERED: HYDROcodone/ACETAMIN 5/325 mg TAB PO PRN (18:00)
[2020-07-15] MEDS ORDERED: Norepinephrine 16MCG/ML IVPRE 4,000 MCG/250 ML BAG IV SCH (19:00)
[2020-07-15] MEDS ORDERED: Morphine 10 MG/ML VIAL (1 ml) ONE ×2 (19:13→19:35)
[2020-07-15] MEDS ORDERED: Lorazepam PYXIS KEY ONE (19:13)
[2020-07-15] MEDS ORDERED: LORazepam 2 mg VIAL 1 ml ONE (19:14)
[2020-07-15 19:21] VITALS: BP 110/70
[2020-07-15] MEDS ORDERED: Lorazepam PYXIS KEY PRN (19:39)
[2020-07-15] MEDS: Morphine 10 MG/ML VIAL (1 ml) IV PRN ×8 (19:40→23:52)
[2020-07-15] MEDS: Venlafaxine XR 75 mg PO SCH (20:02)
[2020-07-15] MEDS: LORazepam 2 mg VIAL 1 ml IV PUSH PRN (22:11)
[2020-07-16] MEDS: Morphine 10 MG/ML VIAL (1 ml) IV PRN (00:08)
[2020-07-16] MEDS: LORazepam 2 mg VIAL 1 ml IV PUSH PRN (00:09)
[2020-07-16 01:29] LABS: Influenza A Molecular Negative (Negative); Influenza B Molecular Negative (Negative)
[2020-07-17 11:22] LABS: Aldolase 13.4 U/L (<7.7)
== END 2020-07-16 00:35 | disposition expired | DRG 843 ==
LOC: MEDTELE 16:07 → ED 16:07 → OBSVTOIN 18:53 → ICU 22:11
PROVIDERS: ADMIT Pediatrics; ATTEND Internal Medicine